=== PATIENT | male | born 1975 | race American Indian/Alaskan Native ===

== ENCOUNTER 2021-11-28 21:52 | Emergency (ER) | payer MEDICAID ==
--- NOTE | 2021-11-28 22:35 | Emergency Department Report ---
ED Palpitations HPI - General Chief Complaint: Chest Pain Stated Complaint: CHEST PAIN/SOB Time Seen by Provider: 11/28/21 22:27 Source: patient Mode of arrival: Ambulatory Limitations: No Limitations - History of Present Illness Initial Comments: Patient is a 46-year-old male with history of CHF, CAD, atrial fibrillation and defibrillator presenting to ED with complaint of palpitations that began this afternoon. States the symptoms began while he was trying to rest. States he then got up and went to the store. Once he returned home and began walking up the steps he began to feel symptoms again and shortly after his defibrillator fired. He also reports increasing dyspnea at rest worsened with exertion. MD Complaint: rapid heart beat, palpitations -: This afternoon Context: occured during rest Arrythmia History: atrial fibrillation, other (Defibrillator) Associated Symptoms: shortness of breath - Related Data Home Medications Medication Instructions Recorded Confirmed Last Taken Losartan [Cozaar] 100 mg PO QDAY 06/25/21 11/22/21 Unknown Simvastatin 20 mg PO DAILY 06/25/21 11/22/21 Unknown Albuterol Mdi (or & Nicu Only) 2 puff IH QID PRN 11/22/21 11/22/21 Unknown [ProAir HFA Inhaler] Budesonide/Formoterol Fumarate 2 puff PO BID 11/22/21 11/22/21 Unknown [Symbicort 160-4.5 Mcg Inhaler] Multivitamin 1 each PO QDAY 11/22/21 11/22/21 Unknown Pantoprazole [Protonix TAB] 40 mg PO QDAY 11/22/21 11/22/21 Unknown Previous Rx's Medication Instructions Recorded Last Taken Type Furosemide [Lasix TAB] 40 mg PO 0600,1800 #60 tablet 11/24/21 Unknown Rx carvediloL [Coreg] 3.125 mg PO BID #60 tablet 11/24/21 Unknown Rx Allergies Allergy/AdvReac Type Severity Reaction Status Date / Time No Known Allergies Allergy Verified 11/22/21 10:43 ED Review of Systems ROS: Stated complaint: CHEST PAIN/SOB Other details as noted in HPI Constitutional: no symptoms reported Eyes: denies: eye pain, eye discharge ENT: denies: ear pain, throat pain Respiratory: SOB with exertion, SOB at rest Cardiovascular: palpitations, dyspnea on exertion, edema Gastrointestinal: denies: abdominal pain, nausea, vomiting Musculoskeletal: denies: back pain, joint swelling, arthralgia Skin: denies: rash, lesions Neurological: denies: headache, weakness Psychiatric: denies: anxiety, depression Hematological/Lymphatic: denies: easy bleeding, easy bruising ED Past Medical Hx - Past Medical History Hx Hypertension: Yes Hx Congestive Heart Failure: Yes Hx Renal Disease: Yes (stage 3 kidney disease) - Surgical History Hx Internal Defibrillator: Yes - Social History Smoking Status: Current Every Day Smoker - Medications Home Medications: Home Medications Medication Instructions Recorded Confirmed Last Taken Type Losartan [Cozaar] 100 mg PO QDAY 06/25/21 11/22/21 Unknown History Simvastatin 20 mg PO DAILY 06/25/21 11/22/21 Unknown History Albuterol Mdi (or & Nicu Only) 2 puff IH QID PRN 11/22/21 11/22/21 Unknown History [ProAir HFA Inhaler] Budesonide/Formoterol Fumarate 2 puff PO BID 11/22/21 11/22/21 Unknown History [Symbicort 160-4.5 Mcg Inhaler] Multivitamin 1 each PO QDAY 11/22/21 11/22/21 Unknown History Pantoprazole [Protonix TAB] 40 mg PO QDAY 11/22/21 11/22/21 Unknown History Furosemide [Lasix TAB] 40 mg PO 0600,1800 #60 tablet 11/24/21 Unknown Rx carvediloL [Coreg] 3.125 mg PO BID #60 tablet 11/24/21 Unknown Rx ED Physical Exam - General Limitations: No Limitations General appearance: alert, in no apparent distress, obese - Head Head exam: Present: atraumatic, normocephalic - Eye Eye exam: Present: normal appearance, EOMI - Respiratory Respiratory exam: Present: normal lung sounds bilaterally. Absent: respiratory distress - Cardiovascular Cardiovascular Exam: Present: normal rhythm, tachycardia, normal heart sounds - GI/Abdominal GI/Abdominal exam: Present: soft. Absent: distended, tenderness - Rectal Rectal exam: Present: deferred - Extremities Exam Extremities exam: Present: normal inspection - Neurological Exam Neurological exam: Present: alert, oriented X3 - Psychiatric Psychiatric exam: Present: normal affect, normal mood - Skin Skin exam: Present: warm, dry, intact, normal color. Absent: rash ED Course Vital Signs 11/28/21 11/28/21 11/28/21 21:58 22:18 22:31 Temperature 98.4 F Pulse Rate 110 H 106 H Respiratory 24 25 H Rate Blood Pressure 143/95 137/93 137/95 O2 Sat by Pulse 95 97 Oximetry 11/28/21 11/28/21 11/28/21 22:45 23:01 23:15 Temperature Pulse Rate 103 H 108 H 100 H Respiratory 15 26 H 8 L Rate Blood Pressure 137/95 133/91 133/91 O2 Sat by Pulse 100 91 94 Oximetry 11/28/21 11/28/21 11/29/21 23:31 23:45 00:01 Temperature Pulse Rate 106 H 103 H 99 H Respiratory 19 29 H 23 Rate Blood Pressure 141/100 141/100 133/103 O2 Sat by Pulse 96 98 96 Oximetry 11/29/21 11/29/21 11/29/21 00:15 00:31 00:45 Temperature Pulse Rate 107 H 109 H 110 H Respiratory 20 20 34 H Rate Blood Pressure 133/103 137/99 137/99 O2 Sat by Pulse 92 90 92 Oximetry 11/29/21 11/29/21 11/29/21 01:01 01:15 01:31 Temperature Pulse Rate 109 H 107 H 93 H Respiratory 27 H 13 18 Rate Blood Pressure 141/105 141/105 134/100 O2 Sat by Pulse 94 98 86 Oximetry 11/29/21 11/29/21 11/29/21 01:45 02:01 02:15 Temperature Pulse Rate 106 H 106 H 100 H Respiratory 35 H 38 H 43 H Rate Blood Pressure 134/100 143/108 143/108 O2 Sat by Pulse 94 92 84 Oximetry 11/29/21 11/29/21 11/29/21 02:31 02:45 03:01 Temperature Pulse Rate 93 H 108 H 102 H Respiratory 25 H 22 17 Rate Blood Pressure 155/101 155/101 141/101 O2 Sat by Pulse 95 93 97 Oximetry ED Medical Decision Making - Lab Data Result diagrams: 11/28/21 23:46 11/28/21 23:46 - EKG Data -: EKG Interpreted by Me (EKG shows sinus tachycardia with ventricular rate of 106. Normal axis and.) EKG shows normal: sinus rhythm Rate: tachycardia - Medical Decision Making CBC and CMP gross unremarkable except for creatinine of 1.4. 2 sets of troponins are normal. On reassessment patient sleeping comfortably in bed. His vital signs are stable. He is not requiring supplemental oxygen. He is stable for discharge home with PCP and cardiology follow-up within 1 week. Critical care attestation.: If time is entered above; I have spent that time in minutes in the direct care of this critically ill patient, excluding procedure time. ED Disposition Clinical Impression: Sinus tachycardia, Defibrillator discharge Disposition: 01 HOME / SELF CARE / HOMELESS Is pt being admited?: No Does the pt Need Aspirin: No Condition: Stable Instructions: Sinus Tachycardia Additional Instructions: Please follow-up with your incubator operator within 1 week. You may return if your symptoms worsen. Referrals: PRIMARY CARE, [Primary Care Provider] - 3-5 Days Time of Disposition: 04:34 Print Language: LATVIAN
[2021-11-28] MEDS ORDERED: ASPIRIN 81 MG TAB CHEW PO ONE (23:35)
--- NOTE | 2021-11-28 23:57 | XRay Report ---
Chest single view INDICATION: Dyspnea IMPRESSION: Mild interstitial edema with borderline cardiomegaly. Signer Name: Alvin Hernandez MD Signed: 11/28/2021 11:52 PM Workstation Name: [id number]
[2021-11-29 00:12] LABS: Basophils % (Auto) 0.5 % (0.0-1.8); Eosinophils # (Auto) 0.1 K/mm3 (0.0-0.4); Eosinophils % (Auto) 0.8 % (0.0-4.3); Hematocrit 43.4 % (35.5-45.6); Hemoglobin 14.1 gm/dl (11.8-15.2); Lymphocytes # (Auto) 2.3 K/mm3 (1.2-5.4); Mean Corpuscular HGB Conc 33 % (32-34); Mean Corpuscular Volume 93 fl (84-94); Monocytes # (Auto) 0.6 K/mm3 (0.0-0.8); Monocytes % (Auto) 8.9 % (0.0-7.3); Platelet Count 217 K/mm3 (140-440); Red Blood Count 4.67 M/mm3 (3.65-5.03); Red Cell Distribution Width 15.2 % (13.2-15.2)
[2021-11-29 00:21] LABS: INR 0.92 (0.87-1.13); Partial Thromboplastin Time 29.6 Sec. (24.2-36.6)
[2021-11-29 00:38] LABS: Alanine Aminotransferase 17 units/L (7-56); BUN/Creatinine Ratio 11; Blood Urea Nitrogen 16 mg/dL (9-20); Calcium 9.1 mg/dL (8.4-10.2); Hemolysis Index 9
[2021-11-29] MEDS ORDERED: ASPIRIN 81 MG TAB CHEW PO ONE (03:00)
[2021-11-29] MEDS ORDERED: FUROSEMIDE 40 MG/4 ML INJ IV ONE (04:37)
[2021-11-29 06:58] VITALS: BP 133/91
--- NOTE | 2021-11-30 20:12 | Electrocardiograph Report ---
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
== END 2021-11-29 06:31 | disposition home or self-care (01) ==
LOC: ED 21:52
DX: T82.897A Other specified complication of cardiac prosthetic devices, implants and grafts, initial encounter (principal); R00.0 Tachycardia, unspecified; I11.0 Hypertensive heart disease with heart failure; I50.9 Heart failure, unspecified; N28.9 Disorder of kidney and ureter, unspecified; Z98.890 Other specified postprocedural states; F17.200 Nicotine dependence, unspecified, uncomplicated; Z79.899 Other long term (current) drug therapy; X58.XXXA Exposure to other specified factors, initial encounter; Y93.89 Activity, other specified; Y92.89 Other specified places as the place of occurrence of the external cause; Y99.8 Other external cause status
CPT/HCPCS: 36415; 71045; 80053; 83880; 84484; 85025; 85610; 85730; 93005; 96374; 99284; J1940

== ENCOUNTER 2021-12-02 16:43 | Inpatient (IN) | payer MEDICAID ==
[2021-12-02] MEDS ORDERED: ONDANSETRON 4 MG/2 ML INJ IV ONE (19:27)
[2021-12-02] MEDS ORDERED: fentaNYL 100 MCG/2 ML INJ IV ONE (19:27)
--- NOTE | 2021-12-02 19:36 | Emergency Department Report ---
HPI - General Chief Complaint: Chest Pain Time Seen by Provider: 12/02/21 19:15 - HPI HPI: Room 21 The patient is a 46-year-old male present with chief complaint of chest pain. Patient states since yesterday he has had constant chest tightness associated with shortness of breath and then an epigastric pressure whenever he exerts himself. Patient currently gets this chest tightness a score of 5/10. Patient states he has been compliant with his Lasix. Patient admits to diaphoresis with this chest pain but denies nausea/vomiting. The patient states his last stress test occurred 1 to 2 years ago was last cardiac catheterization occurred approxi mately 5 years ago. ED Past Medical Hx - Past Medical History Previous Medical History?: Yes Hx Hypertension: Yes Hx Congestive Heart Failure: Yes Hx Renal Disease: Yes (stage 3 kidney disease) Additional medical history: Obesity - Surgical History Past Surgical History?: Yes Hx Internal Defibrillator: Yes - Family History Family history: no significant - Social History Smoking Status: Current Every Day Smoker (1/4 pack/day) Substance Use Type: None (Denies illicit drug use), Alcohol (Occasional) - Medications Home Medications: Home Medications Medication Instructions Recorded Confirmed Last Taken Type Losartan [Cozaar] 100 mg PO QDAY 06/25/21 11/22/21 Unknown History Simvastatin 20 mg PO DAILY 06/25/21 11/22/21 Unknown History Albuterol Mdi (or & Nicu Only) 2 puff IH QID PRN 11/22/21 11/22/21 Unknown History [ProAir HFA Inhaler] Budesonide/Formoterol Fumarate 2 puff PO BID 11/22/21 11/22/21 Unknown History [Symbicort 160-4.5 Mcg Inhaler] Multivitamin 1 each PO QDAY 11/22/21 11/22/21 Unknown History Pantoprazole [Protonix TAB] 40 mg PO QDAY 11/22/21 11/22/21 Unknown History Furosemide [Lasix TAB] 40 mg PO 0600,1800 #60 tablet 11/24/21 Unknown Rx carvediloL [Coreg] 3.125 mg PO BID #60 tablet 11/24/21 Unknown Rx ED Review of Systems ROS: Stated complaint: CHEST PAIN/SHORTNESS OF BREAHT Other details as noted in HPI Constitutional: diaphoresis Eyes: denies: eye pain ENT: denies: throat pain Respiratory: shortness of breath Cardiovascular: chest pain Endocrine: no symptoms reported Gastrointestinal: abdominal pain. denies: nausea, vomiting Genitourinary: denies: dysuria Musculoskeletal: denies: back pain Neurological: denies: headache Physical Exam - Physical Exam Vital Signs: Vital Signs 12/02/21 19:25 Temperature 98.2 F Pulse Rate 82 Respiratory 18 Rate Blood Pressure 136/88 O2 Sat by Pulse 98 Oximetry Physical Exam: GENERAL: The patient is well-developed well-nourished male lying on stretcher not appearing to be in acute distress. [] HEENT: Normocephalic. Atraumatic. Extraocular motions are intact. Patient has moist mucous membranes. NECK: Supple. Trachea midline CHEST/LUNGS: Clear to auscultation. There is no respiratory distress noted. HEART/CARDIOVASCULAR: Regular. There is no tachycardia. There is no gallop rub or murmur. ABDOMEN: Abdomen is soft, with mild epigastric discomfort to palpation. No rebound or guarding. Patient has normal bowel sounds. There is no abdominal distention. SKIN: There is no rash. There is no edema. There is no diaphoresis. NEURO: The patient is awake, alert, and oriented. The patient is cooperative. The patient has no focal neurologic deficits. The patient has normal speech. GCS 15 MUSCULOSKELETAL: There is no evidence of acute injury. ED Course Vital Signs 12/02/21 19:25 Temperature 98.2 F Pulse Rate 82 Respiratory 18 Rate Blood Pressure 136/88 O2 Sat by Pulse 98 Oximetry ED Medical Decision Making - Lab Data Result diagrams: 12/02/21 20:02 12/02/21 20:02 Laboratory Tests 12/02/21 12/02/21 12/02/21 20:02 20:02 20:02 WBC 6.8 RBC 4.71 Hgb 14.4 Hct 43.7 MCV 93 MCH 31 MCHC 33 RDW 15.0 Plt Count 233 Lymph % (Auto) 31.3 [place] % (Auto) 9.3 H Eos % (Auto) 0.6 Baso % (Auto) 0.6 Lymph # (Auto) 2.1 [place] # (Auto) 0.6 Eos # (Auto) 0.0 Baso # (Auto) 0.0 Seg Neutrophils % 58.2 Seg Neutrophils # 3.9 PT 14.6 INR 1.03 Sodium 140 Potassium 4.9 Chloride 102.2 Carbon Dioxide 25 Anion Gap 18 BUN 23 H Creatinine 1.5 H Estimated GFR > 60 BUN/Creatinine Ratio 15 Glucose 94 Calcium 9.2 Total Bilirubin 1.10 AST 43 H ALT 38 Alkaline Phosphatase 65 Total Creatine Kinase 73 CK-MB (CK-2) 1.3 CK-MB (CK-2) Rel Index 1.7 Troponin T < 0.010 NT-Pro-B Natriuret Pep 1975 H Total Protein 7.5 Albumin 3.9 Albumin/Globulin Ratio 1.1 Lipase 19 - Radiology Data Radiology results: report reviewed (Chest x-ray), image reviewed (Chest x-ray) interpreted by me: Chest [id number], pulmonary edema. No pneumothorax [facility] [address] [place] [address] XRay Report Signed Patient: DEANDRA SUE MR#: [id number] : 1975 Acct:[id number] Age/Sex: 46 / M ADM Date: 12/02/21 Loc: ED Attending Dr: Ordering Physician: CLINT CORTEZ MD Date of Service: 12/02/21 Procedure(s): XR chest 1V ap Accession Number(s): [id number] cc: CLINT CORTEZ MD Fluoro Time In Minutes: CHEST 1 VIEW 12/02/2021 7:23 PM INDICATION / CLINICAL INFORMATION: chest pain. COMPARISON: 11/28/21 FINDINGS: SUPPORT DEVICES: None. HEART / MEDIASTINUM: Heart is mildly enlarged but stable. Left-sided AICD is unchanged. LUNGS / PLEURA: Mild bilateral interstitial edema is unchanged. No acute airspace disease. No pneumothorax. ADDITIONAL FINDINGS: No significant additional findings. IMPRESSION: 1. Mild cardiomegaly and mild pulmonary edema, unchanged. Signer Name: Jose Manuel Evangelista MD Signed: 12/02/2021 8:35 PM Workstation Name: [id number] Transcribed By: DT Dictated By: Stuart Evangelista MD Electronically Authenticated By: Stuart Evangelista MD Signed Date/Time: 12/02/212034 DD/ 34 TD/TT: - Differential Diagnosis Anginal equivalent, ACS, pericarditis, CHF exacerbation, GERD, pancreatitis Critical care attestation.: If time is entered above; I have spent that time in minutes in the direct care of this critically ill patient, excluding procedure time. ED Disposition Clinical Impression: CHF exacerbation, Anginal equivalent Disposition: 09 ADMITTED INPATIENT Is pt being admited?: Yes Does the pt Need Aspirin: Yes Condition: Fair Instructions: Angina, [id number] Referrals: PRIMARY CARE, [Primary Care Provider] - 3-5 Days Time of Disposition: 21:24 (Care transferred to hospitalist (Dr Hatfield)) Heart Score - HEART Score History: Moderately suspicious EKG: Non-specific Age: 45-65 Risk factors: > 3 risk factors or hx of atherosclerotic disease Troponin: < normal limit HEART Score: 5 - EKG Read Time Time EKG Completed: 21:30 EKG Read Time: 21:35
[2021-12-02] MEDS ORDERED: NITROGLYCERIN 2% OINT 1 GM TP ONE (19:43)
[2021-12-02] MEDS ORDERED: ASPIRIN 325 MG TAB PO ONE (19:43)
[2021-12-02 20:22] LABS: Basophils % (Auto) 0.6 % (0.0-1.8); Eosinophils % (Auto) 0.6 % (0.0-4.3); Hematocrit 43.7 % (35.5-45.6); Hemoglobin 14.4 gm/dl (11.8-15.2); Lymphocytes # (Auto) 2.1 K/mm3 (1.2-5.4); Lymphocytes % (Auto) 31.3 % (13.4-35.0); Mean Corpuscular HGB Conc 33 % (32-34); Mean Corpuscular Volume 93 fl (84-94); Monocytes # (Auto) 0.6 K/mm3 (0.0-0.8); Monocytes % (Auto) 9.3 % (0.0-7.3); Platelet Count 233 K/mm3 (140-440); Red Blood Count 4.71 M/mm3 (3.65-5.03)
[2021-12-02 20:35] LABS: INR 1.03 (0.87-1.13)
--- NOTE | 2021-12-02 20:40 | XRay Report ---
CHEST 1 VIEW 12/02/2021 7:23 PM INDICATION / CLINICAL INFORMATION: chest pain. COMPARISON: 11/28/21 FINDINGS: SUPPORT DEVICES: None. HEART / MEDIASTINUM: Heart is mildly enlarged but stable. Left-sided AICD is unchanged. LUNGS / PLEURA: Mild bilateral interstitial edema is unchanged. No acute airspace disease. No pneumot horax. ADDITIONAL FINDINGS: No significant additional findings. IMPRESSION: 1. Mild cardiomegaly and mild pulmonary edema, unchanged. Signer Name: Jose Manuel Evangelista MD Signed: 12/02/2021 8:35 PM Workstation Name: [id number]
[2021-12-02 20:46] LABS: Creatine Kinase MB 1.3 ng/mL (0.0-4.0)
[2021-12-02 20:48] LABS: Alanine Aminotransferase 38 units/L (7-56); Albumin 3.9 g/dL (3.9-5); BUN/Creatinine Ratio 15; Blood Urea Nitrogen 23 mg/dL (9-20); Calcium 9.2 mg/dL (8.4-10.2); Hemolysis Index 20
[2021-12-02] MEDS ORDERED: ONDANSETRON 4 MG/2 ML INJ IV PRN (21:58)
[2021-12-02] MEDS ORDERED: MAGNESIUM HYDROXIDE (MOM) ORAL LIQD UDC PO PRN (21:58)
[2021-12-02] MEDS ORDERED: ACETAMINOPHEN 325 MG TAB PO PRN ×2 (21:58)
[2021-12-02] MEDS ORDERED: MORPHINE 2 MG/1 ML INJ IV PRN (21:58)
[2021-12-02] MEDS ORDERED: MORPHINE 4 MG/1 ML INJ IV PRN ×2 (21:58)
[2021-12-02] MEDS ORDERED: traMADol 50 MG TAB PO PRN (21:58)
--- NOTE | 2021-12-02 22:11 | History and Physical Report ---
History of Present Illness Date of examination: 12/02/21 Date of admission: 12/02/2021 Chief complaint: Chest Pain History of present illness: 46-year-old -British male with significant history of hypertension, CHF and tobacco abuse presented to the emergency room today complaining of chest pain. Chest pain felt like tightness and has been having some epigastric discomfort. Chest pain is worse on exertion. On a scale of 10 pain is about 5- 6 over 10 in severity. There is no known relieving factor. He denies any fever or chills, no nausea vomiting, no hematuria or dysuria. He denies any headache or dizziness but has had some mild diaphoresis. Patient had his last stress test about a year ago and cardiac cath about 5 years ago with Which he indicates were within normal limits. Echocardiogram done on November 21, 2021 reveals EF of 20 to 25%. Work-up in the emergency room today chest x-ray shows cardiomegaly with some pulmonary edema. Lab was significant for elevated BNP of 1975. Patient has been admitted with chest pain and possibly CHF exacerbation. Past History Past Medical History: heart failure, hypertension, renal failure Past Surgical History: Other (Internal defibrillator) Social history: smoking (Current Every Day Smoker (1/4 pack/day)), alcohol abuse (Occasional) Family history: no significant family history Medications and Allergies Allergies Allergy/AdvReac Type Severity Reaction Status Date / Time No Known Allergies Allergy Verified 11/22/21 10:43 Home Medications Medication Instructions Recorded Confirmed Last Taken Type Losartan [Cozaar] 100 mg PO QDAY 06/25/21 11/22/21 Unknown History Simvastatin 20 mg PO DAILY 06/25/21 11/22/21 Unknown History Albuterol Mdi (or & Nicu Only) 2 puff IH QID PRN 11/22/21 11/22/21 Unknown History [ProAir HFA Inhaler] Budesonide/Formoterol Fumarate 2 puff PO BID 11/22/21 11/22/21 Unknown History [Symbicort 160-4.5 Mcg Inhaler] Multivitamin 1 each PO QDAY 11/22/21 11/22/21 Unknown History Pantoprazole [Protonix TAB] 40 mg PO QDAY 11/22/21 11/22/21 Unknown History Furosemide [Lasix TAB] 40 mg PO 0600,1800 #60 tablet 11/24/21 Unknown Rx carvediloL [Coreg] 3.125 mg PO BID #60 tablet 11/24/21 Unknown Rx Active Meds: Active Medications Acetaminophen (Acetaminophen 325 Mg Tab) 650 mg PO Q4H PRN PRN Reason: Pain MILD(1-3)/Fever >100.5/KENDRICK Acetaminophen (Acetaminophen 325 Mg Tab) 650 mg PO Q6H PRN PRN Reason: Pain, Mild (1-3) Aspirin (Aspirin Ec 325 Mg Tab) 325 mg PO QDAY ONESIMO Furosemide (Furosemide 40 Mg/4 Ml Inj) 40 mg IV BID@0600,1800 [facility] Magnesium Hydroxide (Magnesium Hydroxide (Mom) Oral Liqd Udc) 30 ml PO Q4H PRN PRN Reason: Constipation Morphine Sulfate (Morphine 2 Mg/1 Ml Inj) 2 mg IV Q4H PRN PRN Reason: Pain, Moderate (4-6) Morphine Sulfate (Morphine 4 Mg/1 Ml Inj) 4 mg IV Q4H PRN PRN Reason: Pain , Severe (7-10) Morphine Sulfate (Morphine 4 Mg/1 Ml Inj) 2 mg IV Q5MIN PRN PRN Reason: Chest Pain unrelieved by NTG Nitroglycerin (Nitroglycerin 0.4 Mg Tab Subl) 0.4 mg SL Q5M PRN PRN Reason: Chest Pain Ondansetron HCl (Ondansetron 4 Mg/2 Ml Inj) 4 mg IV Q8H PRN PRN Reason: Nausea And Vomiting Sodium Chloride (Sodium Chloride 0.9% 10 Ml Flush Syringe) 10 ml IV BID ONESIMO Sodium Chloride (Sodium Chloride 0.9% 10 Ml Flush Syringe) 10 ml IV PRN PRN PRN Reason: LINE FLUSH Sodium Chloride (Sodium Chloride 0.9% 10 Ml Flush Syringe) 10 ml IV PRN PRN PRN Reason: LINE FLUSH Tramadol HCl (Tramadol 50 Mg Tab) 50 mg PO Q6H PRN PRN Reason: Pain, Moderate (4-6) Review of Systems Constitutional: no fever, no chills Ears, nose, mouth and throat: no nasal congestion, no sore throat Cardiovascular: chest pain, no palpitations Respiratory: shortness of breath, no cough Gastrointestinal: nausea, no abdominal pain, no vomiting, no diarrhea Genitourinary Male: no dysuria, no hematuria, no nocturia Musculoskeletal: no neck pain, no low back pain Integumentary: no rash, no pruritis Neurological: no headaches, no confusion Psychiatric: no anxiety, no depression Endocrine: no polyphagia, no polydipsia, no polyuria, no nocturia Exam - Constitutional Vitals: Temp Pulse Resp BP Pulse Ox 98.2 F 91 H 22 121/89 97 12/02/21 19:25 12/02/21 20:52 12/02/21 20:51 12/02/21 20:52 12/02/21 20:51 General appearance: Present: no acute distress, well-nourished - EENT Eyes: Present: PERRL, EOM intact. Absent: scleral icterus ENT: hearing intact, clear oral mucosa, dentition normal - Neck Neck: Present: supple, normal ROM - Respiratory Respiratory effort: normal Respiratory: bilateral: rales (Few basilar rales) - Cardiovascular Rhythm: regular Heart Sounds: Present: S1 & S2. Absent: gallop, systolic murmur, diastolic murmur, rub, click - Extremities Extremities: no ischemia, pulses intact, pulses symmetrical, No edema, normal temperature, normal color, Full ROM Peripheral Pulses: within normal limits - Abdominal General gastrointestinal: Present: soft, non-distended, normal bowel sounds - Integumentary Integumentary: Present: clear, warm, dry, normal turgor. Absent: rash - Musculoskeletal Musculoskeletal: strength equal bilaterally - Psychiatric Psychiatric: appropriate mood/affect, intact judgment & insight, memory intact, cooperative - Neurologic Neurologic: CNII-XII intact, no focal deficits, moves all extremities HEART Score - HEART Score EKG: Non-specific Age: 45-65 Risk factors: > 3 risk factors or hx of atherosclerotic disease Troponin: Troponin T < 0.010 ng/mL (0.00-0.029) 12/02/21 20:02 Troponin: < normal limit Results - Labs CBC & Chem 7: 12/02/21 20:02 12/02/21 20:02 Labs: Abnormal lab results 12/02/21 12/02/21 Range/Units 20:02 20:02 [place] % (Auto) 9.3 H (0.0-7.3) % BUN 23 H (9-20) mg/dL Creatinine 1.5 H (0.8-1.3) mg/dL AST 43 H (5-40) units/L NT-Pro-B Natriuret Pep 1975 H (0-450) pg/mL Assessment and Plan - Patient Problems (1) Anginal equivalent Current Visit: Yes Status: Acute Plan to address problem: Patient admitted and placed on telemetry. We will check serial cardiac enzymes. Patient placed on daily aspirin, sublingual nitroglycerin and IV morphine as needed for chest pain. Will await further evaluation by cardiology. (2) CHF exacerbation Current Visit: Yes Status: Acute Plan to address problem: Patient placed on diuretics. Will monitor inputs and output and also monitor daily weights Await further evaluation by cardiology. (3) ROMY (acute kidney injury) Current Visit: No Status: Acute Plan to address problem: Worsening renal function from baseline. We will consult nephrology for evaluation. (4) DVT prophylaxis Current Visit: No Status: Acute Plan to address problem: Subcutaneous heparin (5) Full code status Current Visit: Yes Status: Acute Plan to address problem: Patient is full code
[2021-12-03] MEDS: NITROGLYCERIN 0.4 MG TAB SUBL SL PRN ×2 (01:22→08:45)
[2021-12-03] MEDS ORDERED: FUROSEMIDE 40 MG/4 ML INJ IV SCH (06:00)
[2021-12-03 06:30] LABS: Basophils % (Auto) 0.5 % (0.0-1.8); Eosinophils # (Auto) 0.1 K/mm3 (0.0-0.4); Eosinophils % (Auto) 0.9 % (0.0-4.3); Hematocrit 42.9 % (35.5-45.6); Hemoglobin 13.7 gm/dl (11.8-15.2); Lymphocytes # (Auto) 2.2 K/mm3 (1.2-5.4); Lymphocytes % (Auto) 35.4 % (13.4-35.0); Mean Corpuscular HGB Conc 32 % (32-34); Mean Corpuscular Volume 94 fl (84-94); Monocytes # (Auto) 0.6 K/mm3 (0.0-0.8); Monocytes % (Auto) 10.4 % (0.0-7.3); Platelet Count 210 K/mm3 (140-440); Red Blood Count 4.57 M/mm3 (3.65-5.03); Red Cell Distribution Width 15.1 % (13.2-15.2)
[2021-12-03 06:40] LABS: BUN/Creatinine Ratio 15; Blood Urea Nitrogen 23 mg/dL (9-20); Calcium 8.5 mg/dL (8.4-10.2); Hemolysis Index 7
[2021-12-03] MEDS ORDERED: ALBUTEROL 8.5 GM MDI INHALATION IH PRN (07:59)
[2021-12-03] MEDS: ASPIRIN EC 325 MG TAB PO SCH (09:24)
[2021-12-03] MEDS: LOSARTAN 50 MG TAB PO SCH (09:25)
[2021-12-03] MEDS: PANTOPRAZOLE 40 MG TAB PO SCH (09:25)
--- NOTE | 2021-12-03 09:56 | Progress Note ---
Assessment and Plan Assessment and plan: #Acute on chronic heart failure with reduced ejection fraction -Echo 11/21: LVEF 20-25% -patient has been to the ED twice since then -NTproBNP 1972, CXR cardiomegaly and mild pulmonary edema -patient currently given lasix 40mg IV BID, reports torsemide working better, will start torsemide 10mg BID -daily weights, strict I/O's, daily weights -fluid restriction -will restart BB and ARB -Cardiology consulted, assistance appreciated #Atypical chest pain -troponin negative x3 -likely secondary to problem above #Acute hypoxic respiratory failure -currently on 4L NC, will wean as tolerated -patient does not require O2 at baseline -likely secondary to CHF exacerbation #Nonsustained Ventricular tachycardia -seen on telemetry, HR max 130s -formal EKG ordered -Cardiology consulted #ROMY (acute kidney injury) -SCr 1.2 -> 1.5 -creatinine bump after starting diuretics and losartan -likely iatrogenic -Nephrology consulted, assistance appreciated #Morbid obesity -BMI -Counseled patient on the importance of weight loss, incorporating exercise, and dietary changes (lean meats, fresh fruits and vegetables, and water intake). Patient expresses understanding. -Time: +15 min #Obstructive sleep apnea -CPAP at night with naps #History of cocaine use -Patient reports not using since last admission -UDS ordered #Nicotine dependence -Smoking cessation counseling, supportive care, behavior change counseling, +15 minutes. #Advanced care planning -Disease education conducted, care plan discussed, diagnoses discussed, prognosis discussed, and patient acknowledges understanding with care plan -Time: +30 min History Interval history: No acute events overnight. Patient reports having worsening worsening shortness of breath after discharge. Denies chest pain. Per nursing patient had 2 runs of V. tach. Hospitalist Physical - Physical exam Narrative exam: GENERAL: Well-developed well-nourished. In no acute distress. HEENT: NC @4LPM NECK: Supple. CHEST/LUNGS: Coarse breath sound bilaterally. HEART/CARDIOVASCULAR: RRR. No murmur, rubs or gallops appreciated. ABDOMEN: +BS. NT/ND. SKIN: No rashes noted. NEURO: No focal motor deficit. Follows all commands. EXTREMITIES: No cyanosis, clubbing or edema. PSYCH: Cooperative. - Constitutional Vitals: Temp Pulse Resp BP Pulse Ox 98.1 F 138 H 18 108/90 93 04/17/22 07:15 12/03/21 09:25 12/03/21 07:15 12/03/21 09:25 12/03/21 07:15 General appearance: Present: no acute distress, well-nourished HEART Score - HEART Score EKG: Non-specific Age: 45-65 Risk factors: > 3 risk factors or hx of atherosclerotic disease Troponin: Troponin T < 0.010 ng/mL (0.00-0.029) 12/03/21 05:38 Troponin: < normal limit Results - Labs CBC & Chem 7: 12/03/21 05:38 12/03/21 05:38 Labs: Laboratory Last Values WBC 6.2 K/mm3 (4.5-11.0) 12/03/21 05:38 RBC 4.57 M/mm3 (3.65-5.03) 12/03/21 05:38 Hgb 13.7 gm/dl (11.8-15.2) 12/03/21 05:38 Hct 42.9 % (35.5-45.6) 12/03/21 05:38 MCV 94 fl (84-94) 12/03/21 05:38 MCH 30 pg (28-32) 12/03/21 05:38 MCHC 32 % (32-34) 12/03/21 05:38 RDW 15.1 % (13.2-15.2) 12/03/21 05:38 Plt Count 210 K/mm3 (140-440) 12/03/21 05:38 Lymph % (Auto) 35.4 % (13.4-35.0) H 12/03/21 05:38 [place] % (Auto) 10.4 % (0.0-7.3) H 12/03/21 05:38 Eos % (Auto) 0.9 % (0.0-4.3) 12/03/21 05:38 Baso % (Auto) 0.5 % (0.0-1.8) 12/03/21 05:38 Lymph # (Auto) 2.2 K/mm3 (1.2-5.4) 12/03/21 05:38 [place] # (Auto) 0.6 K/mm3 (0.0-0.8) 12/03/21 05:38 Eos # (Auto) 0.1 K/mm3 (0.0-0.4) 12/03/21 05:38 Baso # (Auto) 0.0 K/mm3 (0.0-0.1) 12/03/21 05:38 Seg Neutrophils % 52.8 % (40.0-70.0) 12/03/21 05:38 Seg Neutrophils # 3.2 K/mm3 (1.8-7.7) 12/03/21 05:38 PT 14.6 Sec. (12.2-14.9) 12/02/21 20:02 INR 1.03 (0.87-1.13) 12/02/21 20:02 Sodium 141 mmol/L (137-145) 12/03/21 05:38 Potassium 4.3 mmol/L (3.6-5.0) 12/03/21 05:38 Chloride 103.1 mmol/L (98-107) 12/03/21 05:38 Carbon Dioxide 26 mmol/L (22-30) 12/03/21 05:38 Anion Gap 16 mmol/L 12/03/21 05:38 BUN 23 mg/dL (9-20) H 12/03/21 05:38 Creatinine 1.5 mg/dL (0.8-1.3) H 12/03/21 05:38 Estimated GFR > 60 ml/min 12/03/21 05:38 BUN/Creatinine Ratio 15 % 12/03/21 05:38 Glucose 96 mg/dL (75-100) 12/03/21 05:38 Calcium 8.5 mg/dL (8.4-10.2) 12/03/21 05:38 Total Bilirubin 1.10 mg/dL (0.1-1.2) 12/02/21 20:02 AST 43 units/L (5-40) H 12/02/21 20:02 ALT 38 units/L (7-56) 12/02/21 20:02 Alkaline Phosphatase 65 units/L (35-129) 12/02/21 20:02 Total Creatine Kinase 73 units/L (55-170) 12/02/21 20:02 CK-MB (CK-2) 1.3 ng/mL (0.0-4.0) 12/02/21 20:02 CK-MB (CK-2) Rel Index 1.7 (0-4) 12/02/21 20:02 Troponin T < 0.010 ng/mL (0.00-0.029) 12/03/21 05:38 NT-Pro-B Natriuret Pep 1973 pg/mL (0-450) H 12/02/21 20:02 Total Protein 7.5 g/dL (6.3-8.2) 12/02/21 20:02 Albumin 3.9 g/dL (3.9-5) 12/02/21 20:02 Albumin/Globulin Ratio 1.1 % 12/02/21 20:02 Lipase 19 units/L (13-60) 12/02/21 20:02 Sher/IV: Voiding Method Urinal Active Medications - Current Medications Current Medications: Generic Name Dose Route Start Last Admin Trade Name Freq PRN Reason Stop Dose Admin Acetaminophen 650 mg 12/02/21 21:58 Acetaminophen 325 Mg Tab PO Q4H PRN Pain MILD(1-3)/Fever >100.5/KENDRICK Albuterol 2 puff 12/03/21 07:59 Albuterol 8.5 Gm Mdi Inhalation IH QID PRN Shortness Of Breath Arformoterol Tartrate 15 mcg 12/03/21 09:00 Arformoterol 15 Mcg/2 Ml Nebu IH Q12HRT [facility] Aspirin 325 mg 12/03/21 10:00 12/03/21 09:24 Aspirin Ec 325 Mg Tab PO 325 mg QDAY ONESIMO Administration Budesonide 1 mg 12/03/21 09:00 Budesonide 0.5 Mg/2 Ml Nebu IH Q12HRT [facility] Carvedilol 3.125 mg 12/03/21 10:00 12/03/21 09:24 Carvedilol 3.125 Mg Tab PO 3.125 mg BID ONESIMO Administration Furosemide 40 mg 12/03/21 06:00 12/03/21 07:09 Furosemide 40 Mg/4 Ml Inj IV 40 mg BID@0600,1800 [facility] Administration Heparin Sodium (Porcine) 5,000 unit 12/03/21 14:00 Heparin 5,000 Unit/1 Ml Vial SUB-Q Q8HR [facility] Losartan Potassium 100 mg 12/03/21 10:00 12/03/21 09:25 Losartan 50 Mg Tab PO 100 mg QDAY [facility] Administration Magnesium Hydroxide 30 ml 12/02/21 21:58 Magnesium Hydroxide (Mom) Oral Liqd Udc PO Q4H PRN Constipation Morphine Sulfate 2 mg 12/02/21 21:58 Morphine 2 Mg/1 Ml Inj IV Q4H PRN Pain, Moderate (4-6) Morphine Sulfate 4 mg 12/02/21 21:58 12/03/21 01:25 Morphine 4 Mg/1 Ml Inj IV 4 mg Q4H PRN Administration Pain , Severe (7-10) Morphine Sulfate 2 mg 12/02/21 21:58 Morphine 4 Mg/1 Ml Inj IV Q5MIN PRN Chest Pain unrelieved by NTG Nitroglycerin 0.4 mg 12/02/21 21:58 12/03/21 08:45 Nitroglycerin 0.4 Mg Tab Subl SL 0.4 mg Q5M PRN Administration Chest Pain Ondansetron HCl 4 mg 12/02/21 21:58 Ondansetron 4 Mg/2 Ml Inj IV Q8H PRN Nausea And Vomiting Pantoprazole Sodium 40 mg 12/03/21 10:00 12/03/21 09:25 Pantoprazole 40 Mg Tab PO 40 mg QDAY ONESIMO Administration Sodium Chloride 10 ml 12/02/21 22:00 12/03/21 09:26 Sodium Chloride 0.9% 10 Ml Flush Syringe IV 10 ml BID ONESIMO Administration Sodium Chloride 10 ml 12/02/21 21:58 Sodium Chloride 0.9% 10 Ml Flush Syringe IV PRN PRN LINE FLUSH Sodium Chloride 10 ml 12/02/21 21:58 Sodium Chloride 0.9% 10 Ml Flush Syringe IV PRN PRN LINE FLUSH Tramadol HCl 50 mg 12/02/21 21:58 12/03/21 09:23 Tramadol 50 Mg Tab PO 50 mg Q6H PRN Administration Pain, Moderate (4-6)
[2021-12-03] MEDS ORDERED: NON-FORMULARY EACH (Budesonide/Formoterol Fumarate [Symbicort 160-4.5 Mcg Inhaler] 10.2 GM PO SCH (10:00)
[2021-12-03] MEDS ORDERED: carvediloL 3.125 MG TAB PO SCH (10:00)
[2021-12-03] MEDS ORDERED: LOSARTAN 25 MG TAB PO SCH (10:00)
[2021-12-03 10:01] LABS: Amphetamine Screen,Urine Negative; Benzodiazepines Screen,Urine Negative; Cannabinoid Screen,Urine Negative; Cocaine Screen,Urine Negative; Methadone Screen,Urine Negative; Opiate Screen,Urine Negative
[2021-12-03] MEDS: BUDESONIDE 0.5 MG/2 ML NEBU IH SCH ×2 (10:02→20:18)
[2021-12-03] MEDS: ARFORMOTEROL 15 MCG/2 ML NEBU IH SCH ×2 (10:02→20:20)
--- NOTE | 2021-12-03 11:10 | Consultation ---
History of Present Illness Consult date: 12/03/21 Consult reason: congestive heart failure History of present illness: 46-year-old -Mexican male with significant history of hypertension, non ischemic cardiomyopathy s/p [employer] ICD, HFrEF, paroxysmal atrial fibrillation/flutter, CKD, obesity and tobacco abuse presented to the emergency room complaining of epigastric discomfort and dyspnea. Pt was noted to have CHF exacerbation and has been admitted. He was recently hospitalized for same problem. He has prior h/o cocaine abuse but has recently stopped. He continues to smoke cigarettes and drinks alcohol occasionally. He underwent GAYLA/Cardioversion last year at [facility] and was prescribed amiodarone and eliquis but has not been taking. He reports he stopped taking eliquis due to rectal bleeding. Echocardiogram done on November 21, 2021 reveals EF of 20 to 25%, moderate-severe MR, moderate pulmonary hypertension. ECG reveals sinus tachycardia at 106 bpm, LAE, LVH Telemetry monitoring during hospitalization reveals SR with periods of paroxysmal atrial flutter as well as NSVT Past History Past Medical History: heart failure, hypertension, renal failure Past Surgical History: Other (Internal defibrillator) Social history: smoking (Current Every Day Smoker (1/4 pack/day)), alcohol abuse (Occasional) Family history: no significant family history Medications and Allergies Allergies Allergy/AdvReac Type Severity Reaction Status Date / Time No Known Allergies Allergy Verified 11/22/21 10:43 Home Medications Medication Instructions Recorded Confirmed Last Taken Type Losartan [Cozaar] 100 mg PO QDAY 06/25/21 11/22/21 Unknown History Simvastatin 20 mg PO DAILY 06/25/21 11/22/21 Unknown History Albuterol Mdi (or & Nicu Only) 2 puff IH QID PRN 11/22/21 11/22/21 Unknown History [ProAir HFA Inhaler] Budesonide/Formoterol Fumarate 2 puff PO BID 11/22/21 11/22/21 Unknown History [Symbicort 160-4.5 Mcg Inhaler] Multivitamin 1 each PO QDAY 11/22/21 11/22/21 Unknown History Pantoprazole [Protonix TAB] 40 mg PO QDAY 11/22/21 11/22/21 Unknown History Furosemide [Lasix TAB] 40 mg PO 0600,1800 #60 tablet 11/24/21 Unknown Rx carvediloL [Coreg] 3.125 mg PO BID #60 tablet 11/24/21 Unknown Rx Active Meds: Active Medications Acetaminophen (Acetaminophen 325 Mg Tab) 650 mg PO Q4H PRN PRN Reason: Pain MILD(1-3)/Fever >100.5/KENDRICK Albuterol (Albuterol 8.5 Gm Mdi Inhalation) 2 puff IH QID PRN PRN Reason: Shortness Of Breath Arformoterol Tartrate (Arformoterol 15 Mcg/2 Ml Nebu) 15 mcg IH Q12HRT [facility] Aspirin (Aspirin Ec 325 Mg Tab) 325 mg PO QDAY [facility] Last Admin: 12/03/21 09:24 Dose: 325 mg Budesonide (Budesonide 0.5 Mg/2 Ml Nebu) 1 mg IH Q12HRT [facility] Carvedilol (Carvedilol 3.125 Mg Tab) 3.125 mg PO BID [facility] Last Admin: 12/03/21 09:24 Dose: 3.125 mg Heparin Sodium (Porcine) (Heparin 5,000 Unit/1 Ml Vial) 5,000 unit SUB-Q Q8HR [facility] Losartan Potassium (Losartan 50 Mg Tab) 100 mg PO QDAY [facility] Last Admin: 12/03/21 09:25 Dose: 100 mg Magnesium Hydroxide (Magnesium Hydroxide (Mom) Oral Liqd Udc) 30 ml PO Q4H PRN PRN Reason: Constipation Morphine Sulfate (Morphine 2 Mg/1 Ml Inj) 2 mg IV Q4H PRN PRN Reason: Pain, Moderate (4-6) Morphine Sulfate (Morphine 4 Mg/1 Ml Inj) 4 mg IV Q4H PRN PRN Reason: Pain , Severe (7-10) Last Admin: 12/03/21 01:25 Dose: 4 mg Morphine Sulfate (Morphine 4 Mg/1 Ml Inj) 2 mg IV Q5MIN PRN PRN Reason: Chest Pain unrelieved by NTG Nitroglycerin (Nitroglycerin 0.4 Mg Tab Subl) 0.4 mg SL Q5M PRN PRN Reason: Chest Pain Last Admin: 12/03/21 08:45 Dose: 0.4 mg Ondansetron HCl (Ondansetron 4 Mg/2 Ml Inj) 4 mg IV Q8H PRN PRN Reason: Nausea And Vomiting Pantoprazole Sodium (Pantoprazole 40 Mg Tab) 40 mg PO QDAY [facility] Last Admin: 12/03/21 09:25 Dose: 40 mg Sodium Chloride (Sodium Chloride 0.9% 10 Ml Flush Syringe) 10 ml IV BID ONESIMO Last Admin: 12/03/21 09:26 Dose: 10 ml Sodium Chloride (Sodium Chloride 0.9% 10 Ml Flush Syringe) 10 ml IV PRN PRN PRN Reason: LINE FLUSH Sodium Chloride (Sodium Chloride 0.9% 10 Ml Flush Syringe) 10 ml IV PRN PRN PRN Reason: LINE FLUSH Torsemide (Torsemide 10 Mg Tab) 20 mg PO BID@0600,1800 ONESIMO Tramadol HCl (Tramadol 50 Mg Tab) 50 mg PO Q6H PRN PRN Reason: Pain, Moderate (4-6) Last Admin: 12/03/21 09:23 Dose: 50 mg Review of Systems All systems: negative (per hpi) Physical Examination Vital Signs Temp Pulse Resp BP Pulse Ox 98.2 F 82 18 136/88 98 12/02/21 19:25 12/02/21 19:25 12/02/21 19:25 12/02/21 19:25 12/02/21 19:25 General appearance: obese Cardiac: Positive: Regular Rhythm, Tachycardia Lungs: Positive: Decreased Breath Sounds Abdomen: Positive: Soft Extremities: Present: +2 Edema Results 12/03/21 05:38 12/03/21 05:38 Cardiac Enzymes 12/02/21 Range/Units 20:02 AST 43 H (5-40) units/L CK-MB (CK-2) 1.3 (0.0-4.0) ng/mL Coagulation 12/02/21 Range/Units 20:02 PT 14.6 (12.2-14.9) Sec. INR 1.03 (0.87-1.13) CBC 12/02/21 12/03/21 Range/Units 20:02 05:38 WBC 6.8 6.2 (4.5-11.0) K/mm3 RBC 4.71 4.57 (3.65-5.03) M/mm3 Hgb 14.4 13.7 (11.8-15.2) gm/dl Hct 43.7 42.9 (35.5-45.6) % Plt Count 233 210 (140-440) K/mm3 Lymph # (Auto) 2.1 2.2 (1.2-5.4) K/mm3 [place] # (Auto) 0.6 0.6 (0.0-0.8) K/mm3 Eos # (Auto) 0.0 0.1 (0.0-0.4) K/mm3 Baso # (Auto) 0.0 0.0 (0.0-0.1) K/mm3 Comprehensive Metabolic Panel 12/02/21 12/03/21 Range/Units 20:02 05:38 Sodium 140 141 (137-145) mmol/L Potassium 4.9 4.3 (3.6-5.0) mmol/L Chloride 102.2 103.1 (98-107) mmol/L Carbon Dioxide 25 26 (22-30) mmol/L BUN 23 H 23 H (9-20) mg/dL Creatinine 1.5 H 1.5 H (0.8-1.3) mg/dL Glucose 94 96 (75-100) mg/dL Calcium 9.2 8.5 (8.4-10.2) mg/dL AST 43 H (5-40) units/L ALT 38 (7-56) units/L Alkaline Phosphatase 65 (35-129) units/L Total Protein 7.5 (6.3-8.2) g/dL Albumin 3.9 (3.9-5) g/dL Assessment and Plan Acute on chronic systolic heart failure (HFrEF) Non ischemic cardiomyopathy s/p [employer] ICD Htn CKD Paroxysmal atrial fibrillation/flutter. Previously prescribed anticoagulation but stopped due to rectal bleeding Obesity Recommend: Continue GDMT for NICM including beta leona and ARB Continue diuresis Monitor electrolytes and maintain in normal range Add amiodarone Ideally patient should be on therapeutic anticoagualtion due to paroxysmal AF/AFL but he is currently declining. Patient needs consistent outpatient cardiology f/u
--- NOTE | 2021-12-03 11:48 | Consultation ---
History of Present Illness - Reason for Consult Consult date: 12/03/21 chronic renal failure - History of Present Illness Mr. Romero is a 46yo with chronic systolic heart failure s/p AICD, hypertension, polysubstance dependence, tobacco dependence, alcohol dependence recently discharged from [facility] on Nov 24 following hospitalization for acute hypoxic respiratory failure secondary to acute on chronic systolic heart failure secondary due to medical nonadherence. He represents to the ED with chest pain - characterized as tightness associated with shortness of breath/BISHOP, diaphoresis, epigastric discomfort/bloating Nephrology consulted for SCr 1.5mg/dL. SCr 1.4mg/dL at discharge on Nov 24, 2021. Past History Past Medical History: heart failure, hypertension, renal failure Past Surgical History: Other (Internal defibrillator) Social history: smoking (Current Every Day Smoker (1/4 pack/day)), alcohol abuse (Occasional) Family history: no significant family history Medications and Allergies Allergies Allergy/AdvReac Type Severity Reaction Status Date / Time No Known Allergies Allergy Verified 11/22/21 10:43 Home Medications Medication Instructions Recorded Confirmed Last Taken Type Losartan [Cozaar] 100 mg PO QDAY 06/25/21 11/22/21 Unknown History Simvastatin 20 mg PO DAILY 06/25/21 11/22/21 Unknown History Albuterol Mdi (or & Nicu Only) 2 puff IH QID PRN 11/22/21 11/22/21 Unknown History [ProAir HFA Inhaler] Budesonide/Formoterol Fumarate 2 puff PO BID 11/22/21 11/22/21 Unknown History [Symbicort 160-4.5 Mcg Inhaler] Multivitamin 1 each PO QDAY 11/22/21 11/22/21 Unknown History Pantoprazole [Protonix TAB] 40 mg PO QDAY 11/22/21 11/22/21 Unknown History Furosemide [Lasix TAB] 40 mg PO 0600,1800 #60 tablet 11/24/21 Unknown Rx carvediloL [Coreg] 3.125 mg PO BID #60 tablet 11/24/21 Unknown Rx Active Meds: Active Medications Acetaminophen (Acetaminophen 325 Mg Tab) 650 mg PO Q4H PRN PRN Reason: Pain MILD(1-3)/Fever >100.5/KENDRICK Albuterol (Albuterol 8.5 Gm Mdi Inhalation) 2 puff IH QID PRN PRN Reason: Shortness Of Breath Arformoterol Tartrate (Arformoterol 15 Mcg/2 Ml Nebu) 15 mcg IH Q12HRT [facility] Aspirin (Aspirin Ec 325 Mg Tab) 325 mg PO QDAY [facility] Last Admin: 12/03/21 09:24 Dose: 325 mg Budesonide (Budesonide 0.5 Mg/2 Ml Nebu) 1 mg IH Q12HRT [facility] Carvedilol (Carvedilol 3.125 Mg Tab) 3.125 mg PO BID [facility] Last Admin: 12/03/21 09:24 Dose: 3.125 mg Heparin Sodium (Porcine) (Heparin 5,000 Unit/1 Ml Vial) 5,000 unit SUB-Q Q8HR [facility] Losartan Potassium (Losartan 50 Mg Tab) 100 mg PO QDAY [facility] Last Admin: 12/03/21 09:25 Dose: 100 mg Magnesium Hydroxide (Magnesium Hydroxide (Mom) Oral Liqd Udc) 30 ml PO Q4H PRN PRN Reason: Constipation Morphine Sulfate (Morphine 2 Mg/1 Ml Inj) 2 mg IV Q4H PRN PRN Reason: Pain, Moderate (4-6) Morphine Sulfate (Morphine 4 Mg/1 Ml Inj) 4 mg IV Q4H PRN PRN Reason: Pain , Severe (7-10) Last Admin: 12/03/21 01:25 Dose: 4 mg Morphine Sulfate (Morphine 4 Mg/1 Ml Inj) 2 mg IV Q5MIN PRN PRN Reason: Chest Pain unrelieved by NTG Nitroglycerin (Nitroglycerin 0.4 Mg Tab Subl) 0.4 mg SL Q5M PRN PRN Reason: Chest Pain Last Admin: 12/03/21 08:45 Dose: 0.4 mg Ondansetron HCl (Ondansetron 4 Mg/2 Ml Inj) 4 mg IV Q8H PRN PRN Reason: Nausea And Vomiting Pantoprazole Sodium (Pantoprazole 40 Mg Tab) 40 mg PO QDAY [facility] Last Admin: 12/03/21 09:25 Dose: 40 mg Sodium Chloride (Sodium Chloride 0.9% 10 Ml Flush Syringe) 10 ml IV BID [facility] Last Admin: 12/03/21 09:26 Dose: 10 ml Sodium Chloride (Sodium Chloride 0.9% 10 Ml Flush Syringe) 10 ml IV PRN PRN PRN Reason: LINE FLUSH Sodium Chloride (Sodium Chloride 0.9% 10 Ml Flush Syringe) 10 ml IV PRN PRN PRN Reason: LINE FLUSH Torsemide (Torsemide 10 Mg Tab) 20 mg PO BID@0600,1800 ONESIMO Tramadol HCl (Tramadol 50 Mg Tab) 50 mg PO Q6H PRN PRN Reason: Pain, Moderate (4-6) Last Admin: 12/03/21 09:23 Dose: 50 mg Review of Systems All systems: negative Exam - Vital Signs Vital signs: Vital Signs Temp Pulse Resp BP Pulse Ox 98.2 F 82 18 136/88 98 12/02/21 19:25 12/02/21 19:25 12/02/21 19:25 12/02/21 19:25 12/02/21 19:25 - General Appearance General appearance: well-developed, well-nourished EENT: ATNC Respiratory: Decreased Breath Sounds Heart: irregular Gastrointestinal: Present: normal Integumentary: no rash, warm and dry Neurologic: alert and oriented x3 Psychiatric: cooperative Results - Lab Results 12/03/21 05:38 12/03/21 05:38 Most recent lab results Calcium 8.5 mg/dL (8.4-10.2) 12/03/21 05:38 Assessment and Plan Impression: * Stage II chronic kidney disease --Baseline 1.2-1.4mg/dL * Chest pain * Atrial fibrillation * Cardiomyopathy s/p ICD implantation --TTE: EF 20-25% w/ severely dilated decreased LV systolic function with mild to moderate concentric LVH. LA is mildly dilated. RVSP is 52 mmHg * Hypertension * Type II diabetes mellitus Plan: * Renal function is near baseline - continue conservative management * Will obtain renal ultrasound * Will obtain UA and UPCR * Optimized cardiac function - cardiology following * Diuresis prn * Rate control per cardiology * Dose medications for renal function * Avoid potential nephrotoxins * AM labs ordered
[2021-12-03] MEDS ORDERED: METOPROLOL TARTRATE 5 MG/5 ML INJ IV PRN (11:54)
[2021-12-03] MEDS: HEPARIN 5,000 UNIT/1 ML VIAL SUB-Q SCH ×2 (13:28→22:12)
[2021-12-03] MEDS: AMIODARONE 200 MG TAB PO SCH ×2 (13:33→22:10)
[2021-12-03 15:14] LABS: Creatinine,Urine 216.4 mg/dL (0.1-20.0); Protein/Creatinine Ratio,Urine 0.06
[2021-12-03 15:16] LABS: Bilirubin,Urine NEG (Negative); Blood,Urine NEG (Negative); Color,Urine Yellow (Yellow); Mucus,Urine FEW /HPF; Protein,Urine <15 mg/dL mg/dL (Negative); Urobilinogen,Urine < 2.0 mg/dL (<2.0); WBC,Urine < 1.0 /HPF (0.0-6.0)
--- NOTE | 2021-12-03 16:21 | Ultrasound Report ---
ULTRASOUND RENAL INDICATION / CLINICAL INFORMATION: ROMY. COMPARISON: None available. FINDINGS: RIGHT KIDNEY: Length = 10.4 cm. - Echogenicity: Mildly echogenic. - Parenchymal Thickness: Normal. - Hydronephrosis: None. - Cyst / Mass: None. - Stones: None seen. LEFT KIDNEY: Length = 10 point cm. - Echogenicity: Mildly echogenic. - Parenchymal Thickness: Normal. - Hydronephrosis: None. - Cyst / Mass: None. - Stones: None seen. URINARY BLADDER: No significant abnormality. FREE FLUID: None. ADDITIONAL FINDINGS: None. IMPRESSION: 1. Mildly echogenic kidneys suggesting mild medical renal disease. No hydronephrosis. Signer Name: Jose Manuel Evangelista MD Signed: 12/03/2021 4:17 PM Workstation Name: [id number]
[2021-12-03] MEDS ORDERED: TORSEMIDE 10 MG TAB PO SCH (18:00)
[2021-12-03] MEDS: TORSEMIDE 10 MG TAB PO SCH (18:20)
[2021-12-03] MEDS: carvediloL 3.125 MG TAB PO SCH (22:10)
[2021-12-04] MEDS: HEPARIN 5,000 UNIT/1 ML VIAL SUB-Q SCH ×2 (06:22→13:27)
[2021-12-04] MEDS: TORSEMIDE 10 MG TAB PO SCH (06:22)
[2021-12-04 06:55] LABS: Calcium 8.3 mg/dL (8.4-10.2)
--- NOTE | 2021-12-04 07:22 | Progress Note ---
Assessment and Plan Assessment and plan: #Acute on chronic heart failure with reduced ejection fraction #Nonischemic cardiomyopathy s/p ICD -Echo 11/21: LVEF 20-25% -patient has been to the ED twice since then -NTproBNP 1972, CXR cardiomegaly and mild pulmonary edema -daily weights, strict I/O's, daily weights -fluid restriction -continue toresmide 20mg BID, BB and ARB -Cardiology consulted, assistance appreciated #Atypical chest pain -troponin negative x3 -likely secondary to problem above #Acute hypoxic respiratory failure -currently on 4L NC, will wean as tolerated -patient does not require O2 at baseline -likely secondary to CHF exacerbation #Atrial fibrillation -Rate controlled with amiodarone -Patient no longer taking Eliquis due to rectal bleeding and would prefer not to restart -Discussed increased risk of stroke patient acknowledges #Nonsustained Ventricular tachycardia -seen on telemetry, HR max 130s -formal EKG ordered -Cardiology consulted #ROMY (acute kidney injury) -SCr 1.6 today -creatinine bump after starting diuretics and losartan -Nephrology consulted, assistance appreciated #Morbid obesity -BMI 44.6% -Counseled patient on the importance of weight loss, incorporating exercise, and dietary changes (lean meats, fresh fruits and vegetables, and water intake). Patient expresses understanding. -Time: +15 min #Obstructive sleep apnea -CPAP at night with naps #History of cocaine use -Patient reports not using since last admission -UDS ordered #Nicotine dependence -Smoking cessation counseling, supportive care, behavior change counseling, +15 minutes. #Advanced care planning -Disease education conducted, care plan discussed, diagnoses discussed, prognosis discussed, and patient acknowledges understanding with care plan -Time: +30 min History Interval history: Patient receiving breathing treatment at time of interview. Patient reports improvement in shortness of breath. He has filled up to urinals full of urine since yesterday evening. No complaints at this time. Hospitalist Physical - Physical exam Narrative exam: GENERAL: Well-developed well-nourished. In no acute distress. HEENT: Simple facemask in place. NECK: Supple. CHEST/LUNGS: Coarse breath sound bilaterally. HEART/CARDIOVASCULAR: Irregular irregular rhythm. No murmur, rubs or gallops appreciated. ABDOMEN: +BS. NT/ND. SKIN: No rashes noted. NEURO: No focal motor deficit. Follows all commands. EXTREMITIES: No cyanosis, clubbing or edema. PSYCH: Cooperative. - Constitutional Vitals: Temp Pulse Resp BP Pulse Ox 98.2 F 82 20 118/88 95 12/04/21 03:45 12/04/21 03:45 12/04/21 03:45 12/04/21 03:45 12/04/21 03:45 General appearance: Present: obese HEART Score - HEART Score EKG: Non-specific Age: 45-65 Risk factors: > 3 risk factors or hx of atherosclerotic disease Troponin: Troponin T < 0.010 ng/mL (0.00-0.029) 12/03/21 05:38 Troponin: < normal limit Results - Labs CBC & Chem 7: 12/03/21 05:38 12/04/21 05:06 Labs: Laboratory Last Values WBC 6.2 K/mm3 (4.5-11.0) 12/03/21 05:38 RBC 4.57 M/mm3 (3.65-5.03) 12/03/21 05:38 Hgb 13.7 gm/dl (11.8-15.2) 12/03/21 05:38 Hct 42.9 % (35.5-45.6) 12/03/21 05:38 MCV 94 fl (84-94) 12/03/21 05:38 MCH 30 pg (28-32) 12/03/21 05:38 MCHC 32 % (32-34) 12/03/21 05:38 RDW 15.1 % (13.2-15.2) 12/03/21 05:38 Plt Count 210 K/mm3 (140-440) 12/03/21 05:38 Lymph % (Auto) 35.4 % (13.4-35.0) H 12/03/21 05:38 Rogers % (Auto) 10.4 % (0.0-7.3) H 12/03/21 05:38 Eos % (Auto) 0.9 % (0.0-4.3) 12/03/21 05:38 Baso % (Auto) 0.5 % (0.0-1.8) 12/03/21 05:38 Lymph # (Auto) 2.2 K/mm3 (1.2-5.4) 12/03/21 05:38 Rogers # (Auto) 0.6 K/mm3 (0.0-0.8) 12/03/21 05:38 Eos # (Auto) 0.1 K/mm3 (0.0-0.4) 12/03/21 05:38 Baso # (Auto) 0.0 K/mm3 (0.0-0.1) 12/03/21 05:38 Seg Neutrophils % 52.8 % (40.0-70.0) 12/03/21 05:38 Seg Neutrophils # 3.2 K/mm3 (1.8-7.7) 12/03/21 05:38 PT 14.6 Sec. (12.2-14.9) 12/02/21 20:02 INR 1.03 (0.87-1.13) 12/02/21 20:02 Sodium 141 mmol/L (137-145) 12/04/21 05:06 Potassium 4.1 mmol/L (3.6-5.0) 12/04/21 05:06 Chloride 102.7 mmol/L (98-107) 12/04/21 05:06 Carbon Dioxide 28 mmol/L (22-30) 12/04/21 05:06 Anion Gap 14 mmol/L 12/04/21 05:06 BUN 20 mg/dL (9-20) 12/04/21 05:06 Creatinine 1.6 mg/dL (0.8-1.3) H 12/04/21 05:06 Estimated GFR 56 ml/min 12/04/21 05:06 BUN/Creatinine Ratio 13 % 12/04/21 05:06 Glucose 107 mg/dL (75-100) H 12/04/21 05:06 Calcium 8.3 mg/dL (8.4-10.2) L 12/04/21 05:06 Total Bilirubin 1.10 mg/dL (0.1-1.2) 12/02/21 20:02 AST 43 units/L (5-40) H 12/02/21 20:02 ALT 38 units/L (7-56) 12/02/21 20:02 Alkaline Phosphatase 65 units/L (35-129) 12/02/21 20:02 Total Creatine Kinase 73 units/L (55-170) 12/02/21 20:02 CK-MB (CK-2) 1.3 ng/mL (0.0-4.0) 12/02/21 20:02 CK-MB (CK-2) Rel Index 1.7 (0-4) 12/02/21 20:02 Troponin T < 0.010 ng/mL (0.00-0.029) 12/03/21 05:38 NT-Pro-B Natriuret Pep 1973 pg/mL (0-450) H 12/02/21 20:02 Total Protein 7.5 g/dL (6.3-8.2) 12/02/21 20:02 Albumin 3.9 g/dL (3.9-5) 12/02/21 20:02 Albumin/Globulin Ratio 1.1 % 12/02/21 20:02 Lipase 19 units/L (13-60) 12/02/21 20:02 Urine Color Yellow (Yellow) 12/03/21 Unknown Urine Turbidity Clear (Clear) 12/03/21 Unknown Urine pH 6.0 (5.0-7.0) 12/03/21 Unknown Ur Specific [place] 1.017 (1.003-1.030) 12/03/21 Unknown Urine Protein <15 mg/dl mg/dL (Negative) 12/03/21 Unknown Urine Glucose (UA) Neg mg/dL (Negative) 12/03/21 Unknown Urine Ketones Neg mg/dL (Negative) 12/03/21 Unknown Urine Blood Neg (Negative) 12/03/21 Unknown Urine Nitrite Neg (Negative) 12/03/21 Unknown Urine Bilirubin Neg (Negative) 12/03/21 Unknown Urine Urobilinogen < 2.0 mg/dL (<2.0) 12/03/21 Unknown Ur Leukocyte Esterase Neg (Negative) 12/03/21 Unknown Urine WBC (Auto) < 1.0 /HPF (0.0-6.0) 12/03/21 Unknown Urine RBC (Auto) 2.0 /HPF (0.0-6.0) 12/03/21 Unknown Urine Mucus Few /HPF 12/03/21 Unknown Urine Creatinine 216.4 mg/dL (0.1-20.0) H 12/03/21 Unknown Protein/Creatinin Ratio 0.06 12/03/21 Unknown Urine Total Protein 13 mg/dL (5-11.8) H 12/03/21 Unknown Urine Opiates Screen Negative 12/03/21 09:41 Urine Methadone Screen Negative 12/03/21 09:41 Ur Barbiturates Screen Negative 12/03/21 09:41 Ur Phencyclidine Scrn Negative 12/03/21 09:41 Ur Amphetamines Screen Negative 12/03/21 09:41 U Benzodiazepines Scrn Negative 12/03/21 09:41 Urine Cocaine Screen Negative 12/03/21 09:41 U Marijuana (THC) Screen Negative 12/03/21 09:41 Drugs of Abuse Note Disclamer 12/03/21 09:41 Sher/IV: Voiding Method Urinal Active Medications - Current Medications Current Medications: Generic Name Dose Route Start Last Admin Trade Name Freq PRN Reason Stop Dose Admin Acetaminophen 650 mg 12/02/21 21:58 Acetaminophen 325 Mg Tab PO Q4H PRN Pain MILD(1-3)/Fever >100.5/KENDRICK Albuterol 2 puff 12/03/21 07:59 Albuterol 8.5 Gm Mdi Inhalation IH QID PRN Shortness Of Breath Amiodarone HCl 200 mg 12/03/21 13:00 12/03/21 22:10 Amiodarone 200 Mg Tab PO 200 mg BID ONESIMO Administration Arformoterol Tartrate 15 mcg 12/03/21 09:00 12/03/21 20:20 Arformoterol 15 Mcg/2 Ml Nebu IH 15 mcg Q12HRT ONESIMO Administration Aspirin 325 mg 12/03/21 10:00 12/03/21 09:24 Aspirin Ec 325 Mg Tab PO 325 mg QDAY ONESIMO Administration Budesonide 1 mg 12/03/21 09:00 12/03/21 20:18 Budesonide 0.5 Mg/2 Ml Nebu IH 1 mg Q12HRT ONESIMO Administration Carvedilol 6.25 mg 12/03/21 11:55 12/03/21 22:10 Carvedilol 3.125 Mg Tab PO 6.25 mg BID ONESIMO Administration Heparin Sodium (Porcine) 5,000 unit 12/03/21 14:00 12/04/21 06:22 Heparin 5,000 Unit/1 Ml Vial SUB-Q 5,000 unit Q8HR ONESIMO Administration Losartan Potassium 100 mg 12/03/21 10:00 12/03/21 09:25 Losartan 50 Mg Tab PO 100 mg QDAY ONESIMO Administration Magnesium Hydroxide 30 ml 12/02/21 21:58 Magnesium Hydroxide (Mom) Oral Liqd Udc PO Q4H PRN Constipation Metoprolol Tartrate 5 mg 12/03/21 11:54 Metoprolol Tartrate 5 Mg/5 Ml Inj IV Q6HR PRN Tachyarrhythmias Morphine Sulfate 2 mg 12/02/21 21:58 Morphine 2 Mg/1 Ml Inj IV Q4H PRN Pain, Moderate (4-6) Morphine Sulfate 4 mg 12/02/21 21:58 12/03/21 01:25 Morphine 4 Mg/1 Ml Inj IV 4 mg Q4H PRN Administration Pain , Severe (7-10) Morphine Sulfate 2 mg 12/02/21 21:58 Morphine 4 Mg/1 Ml Inj IV Q5MIN PRN Chest Pain unrelieved by NTG Nitroglycerin 0.4 mg 12/02/21 21:58 12/03/21 08:45 Nitroglycerin 0.4 Mg Tab Subl SL 0.4 mg Q5M PRN Administration Chest Pain Ondansetron HCl 4 mg 12/02/21 21:58 Ondansetron 4 Mg/2 Ml Inj IV Q8H PRN Nausea And Vomiting Pantoprazole Sodium 40 mg 12/03/21 10:00 12/03/21 09:25 Pantoprazole 40 Mg Tab PO 40 mg QDAY ONESIMO Administration Sodium Chloride 10 ml 12/02/21 22:00 12/03/21 22:09 Sodium Chloride 0.9% 10 Ml Flush Syringe IV 10 ml BID ONESIMO Administration Sodium Chloride 10 ml 12/02/21 21:58 Sodium Chloride 0.9% 10 Ml Flush Syringe IV PRN PRN LINE FLUSH Torsemide 20 mg 12/03/21 18:00 12/04/21 06:22 Torsemide 10 Mg Tab PO 20 mg BID@0600,1800 ONESIMO Administration Tramadol HCl 50 mg 12/02/21 21:58 12/03/21 09:23 Tramadol 50 Mg Tab PO 50 mg Q6H PRN Administration Pain, Moderate (4-6)
[2021-12-04] MEDS ORDERED: REGADENOSON 0.4 MG/5 ML INJ IV ONE (09:05)
[2021-12-04] MEDS: BUDESONIDE 0.5 MG/2 ML NEBU IH SCH ×2 (11:03→20:40)
[2021-12-04] MEDS: ARFORMOTEROL 15 MCG/2 ML NEBU IH SCH ×2 (11:04→20:41)
[2021-12-04] MEDS: AMIODARONE 200 MG TAB PO SCH ×2 (11:05→22:26)
[2021-12-04] MEDS: ASPIRIN EC 325 MG TAB PO SCH (11:05)
[2021-12-04] MEDS: LOSARTAN 50 MG TAB PO SCH (11:05)
[2021-12-04] MEDS: PANTOPRAZOLE 40 MG TAB PO SCH (11:05)
[2021-12-04] MEDS: carvediloL 3.125 MG TAB PO SCH ×2 (11:07→22:27)
--- NOTE | 2021-12-04 11:54 | Progress Note ---
Assessment and Plan - Patient Problems (1) Acute on chronic systolic heart failure Current Visit: Yes Status: Acute Plan to address problem: The patient is a 46-year-old man with a history of dilated nonischemic cardiomyopathy, chronic systolic left ventricular failure. He receives his usual cardiac care at [facility], and his manager post is located in [place]. He has a single chamber ICD in situ. He presented to the hospital at this time with progressive dyspnea and fatigue, and admits to me that he has had a recent predilection for high sodium fast foods. Chest x-ray in the emergency room showed evidence of mild interstitial edema. The patient has improved clinically following diuretic therapy. He was ordered by the medical service for a stress test. He has had extensive ischemic work-up over the past several years, with 2 cardiac catheterization procedures first at [facility] and then at [facility]. Both procedures reported normal coronaries and his cardiomyopathy diagnosed as idiopathic. We will continue optimal guideline directed medical therapy, patient advised to refrain from high salt diet, maintain medical compliance and outpatient follow- up with his manager post. No indication for stress testing for assessment of heart failure exacerbation and a nonischemic cardiomyopathy. Subjective Date of service: 12/04/21 Principal diagnosis: Acute on chronic systolic heart failure Interval history: The patient is a 46-year-old man with a history of dilated nonischemic ca rdiomyopathy, chronic systolic left ventricular failure. He receives his usual cardiac care at [facility], and his manager post is located in [place]. He has a single chamber ICD in situ. He presented to the hospital at this time with progressive dyspnea and fatigue, and admits to me that he has had a recent predilection for high sodium fast foods. Chest x-ray in the emergency room showed evidence of mild interstitial edema. The patient has improved clinically following diuretic therapy. He was ordered by the medical service for a stress test. He has had extensive ischemic work-up over the past several years, with 2 cardiac catheterization procedures first at [facility] and then at [facility]. Both procedures reported normal coronaries and his cardiomyopathy diagnosed as idiopathic. Objective Vital Signs Temp Pulse Pulse Pulse Pulse Resp Resp 12/04/21 11:12 98.3 F 12/04/21 11:07 78 12/04/21 11:05 78 12/04/21 10:14 82 12/04/21 10:00 87 18 12/04/21 08:39 80 22 12/04/21 03:45 98.2 F 82 20 12/03/21 23:00 89 12/03/21 22:10 99 H 12/03/21 22:00 83 17 12/03/21 20:20 80 18 12/03/21 19:55 97.9 F 90 20 12/03/21 15:36 97.4 F L 83 18 12/03/21 15:00 83 BP Pulse Ox 12/04/21 11:12 12/04/21 11:07 110/82 12/04/21 11:05 110/82 12/04/21 10:14 12/04/21 10:00 12/04/21 08:39 94 12/04/21 03:45 118/88 95 12/03/21 23:00 12/03/21 22:10 12/03/21 22:00 98 12/03/21 20:20 12/03/21 19:55 121/88 98 12/03/21 15:36 107/71 95 12/03/21 15:00 - Physical Examination General: No Apparent Distress HEENT: Positive: PERRL Neck: Positive: neck supple Cardiac: Positive: Reg Rate and Rhythm Lungs: Positive: Decreased Breath Sounds Neuro: Positive: Grossly Intact Abdomen: Positive: Soft Skin: Positive: Clear Extremities: Present: edema (Trace) - Labs and Meds Comprehensive Metabolic Panel 12/04/21 Range/Units 05:06 Sodium 141 (137-145) mmol/L Potassium 4.1 (3.6-5.0) mmol/L Chloride 102.7 (98-107) mmol/L Carbon Dioxide 28 (22-30) mmol/L BUN 20 (9-20) mg/dL Creatinine 1.6 H (0.8-1.3) mg/dL Glucose 107 H (75-100) mg/dL Calcium 8.3 L (8.4-10.2) mg/dL
[2021-12-04] MEDS ORDERED: FUROSEMIDE 40 MG/4 ML INJ IV SCH ×2 (12:30→18:00)
[2021-12-04] MEDS: SPIRONOLACTONE 25 MG TAB PO SCH (13:26)
--- NOTE | 2021-12-04 14:14 | Electrocardiograph Report ---
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
--- NOTE | 2021-12-04 14:16 | Electrocardiograph Report ---
[facility] Test Date: 2021-12-03 Test Time: 06:46:59 Pat Name: DEANDRA SUE Department: Room: A480 1 Gender: M Nurse Coordinator: CARLOZ : 1975 Requested By: CAITIE CRENSHAW Order Number: [id number] Reading MD: Davin Zimmerman Measurements Intervals [place] Rate: 82 P: 86 IN: 179 QRS: -25 QRSD: 104 T: 97 QT: 412 QTc: 483 Interpretive Statements Very poor data quality Sinus rhythm Probable left atrial enlargement LVH w/ repol abnormalities, possible ischemia Compared to ECG 11/28/2021 22:09:17 No significant change Electronically Signed On 12-04-2021 14:15:56 EDT by Davin Zimmerman
--- NOTE | 2021-12-04 14:17 | Electrocardiograph Report ---
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
--- NOTE | 2021-12-04 15:50 | Progress Note ---
Assessment and Plan Impression: * Stage II chronic kidney disease --Baseline 1.2-1.4mg/dL * Chest pain * Atrial fibrillation * Cardiomyopathy s/p ICD implantation --TTE: EF 20-25% w/ severely dilated decreased LV systolic function with mild to moderate concentric LVH. LA is mildly dilated. RVSP is 52 mmHg * Hypertension * Type II diabetes mellitus Plan: * Renal ultrasound shows mildly echogenic kidneys without any hydronephrosis. * His urine does not show any dipstick blood or protein. Urine protein creatinine ratio is 60 mg/g * Serum creatinine noted to be slightly higher today. Reduce Lasix to 40 mg twice a day * Optimized cardiac function - cardiology following * Diuresis prn * Rate control per cardiology * Dose medications for renal function * Avoid potential nephrotoxins Subjective Date of service: 12/04/21 Principal diagnosis: Acute on chronic systolic heart failure Interval history: Patient is comfortable. Shortness of breath is better. No nausea or vomiting. Objective - Vital Signs Vital signs: Vital Signs - 12hr 12/04/21 12/04/21 12/04/21 08:39 10:00 10:14 Temperature Pulse Rate 82 Pulse Rate [ 87 Bilateral Throughout] Pulse Rate [ 80 From Monitor] Respiratory 22 Rate Respiratory 18 Rate [Bilateral Throughout] Blood Pressure O2 Sat by Pulse 94 Oximetry 12/04/21 12/04/21 12/04/21 11:05 11:07 11:12 Temperature 98.3 F Pulse Rate 78 78 Pulse Rate [ Bilateral Throughout] Pulse Rate [ From Monitor] Respiratory Rate Respiratory Rate [Bilateral Throughout] Blood Pressure 110/82 110/82 O2 Sat by Pulse Oximetry 12/04/21 13:26 Temperature Pulse Rate 84 Pulse Rate [ Bilateral Throughout] Pulse Rate [ From Monitor] Respiratory Rate Respiratory Rate [Bilateral Throughout] Blood Pressure O2 Sat by Pulse Oximetry - General Appearance General appearance: well-developed, well-nourished, appears stated age, obese EENT: PERRL, mucous membranes moist Neck: no JVD, no thyromegaly, no carotid bruit, supple Respiratory: Present: Clear to Ascultation Cardiology: regular, normal heart rate, S1S2, no murmurs Gastrointestinal: normal, normoactive bowel sounds Integumentary: no rash, other (No edema) - Lab 12/03/21 05:38 12/04/21 05:06 Most recent lab results Calcium 8.3 mg/dL (8.4-10.2) L 12/04/21 05:06 Urine Creatinine 216.4 mg/dL (0.1-20.0) H 12/03/21 Unknown Urine Total Protein 13 mg/dL (5-11.8) H 12/03/21 Unknown Medications & Allergies - Medications Allergies/Adverse Reactions: Allergies No Known Allergies Allergy (Verified 11/22/21 10:43) Home Medications: Home Medications Medication Instructions Recorded Confirmed Last Taken Type Losartan [Cozaar] 100 mg PO QDAY 06/25/21 11/22/21 Unknown History Simvastatin 20 mg PO DAILY 06/25/21 11/22/21 Unknown History Albuterol Mdi (or & Nicu Only) 2 puff IH QID PRN 11/22/21 11/22/21 Unknown History [ProAir HFA Inhaler] Budesonide/Formoterol Fumarate 2 puff PO BID 11/22/21 11/22/21 Unknown History [Symbicort 160-4.5 Mcg Inhaler] Multivitamin 1 each PO QDAY 11/22/21 11/22/21 Unknown History Pantoprazole [Protonix TAB] 40 mg PO QDAY 11/22/21 11/22/21 Unknown History Furosemide [Lasix TAB] 40 mg PO 0600,1800 #60 tablet 11/24/21 Unknown Rx carvediloL [Coreg] 3.125 mg PO BID #60 tablet 11/24/21 Unknown Rx Active Medications: Generic Name Dose Route Start Last Admin Trade Name Freq PRN Reason Stop Dose Admin Acetaminophen 650 mg 12/02/21 21:58 Acetaminophen 325 Mg Tab PO Q4H PRN Pain MILD(1-3)/Fever >100.5/KENDRICK Albuterol 2 puff 12/03/21 07:59 Albuterol 8.5 Gm Mdi Inhalation IH QID PRN Shortness Of Breath Amiodarone HCl 200 mg 12/03/21 13:00 12/04/21 11:05 Amiodarone 200 Mg Tab PO 200 mg BID ONESIMO Administration Arformoterol Tartrate 15 mcg 12/03/21 09:00 12/04/21 11:04 Arformoterol 15 Mcg/2 Ml Nebu IH 15 mcg Q12HRT ONESIMO Administration Aspirin 325 mg 12/03/21 10:00 12/04/21 11:05 Aspirin Ec 325 Mg Tab PO 325 mg QDAY ONESIMO Administration Budesonide 1 mg 12/03/21 09:00 12/04/21 11:03 Budesonide 0.5 Mg/2 Ml Nebu IH 1 mg Q12HRT ONESIMO Administration Carvedilol 6.25 mg 12/03/21 11:55 12/04/21 11:07 Carvedilol 3.125 Mg Tab PO 6.25 mg BID ONESIMO Administration Furosemide 60 mg 12/04/21 12:30 12/04/21 13:27 Furosemide 40 Mg/4 Ml Inj IV 60 mg QDAY ONESIMO Administration Heparin Sodium (Porcine) 5,000 unit 12/03/21 14:00 12/04/21 13:27 Heparin 5,000 Unit/1 Ml Vial SUB-Q 5,000 unit Q8HR ONESIMO Administration Losartan Potassium 100 mg 12/03/21 10:00 12/04/21 11:05 Losartan 50 Mg Tab PO 100 mg QDAY ONESIMO Administration Magnesium Hydroxide 30 ml 12/02/21 21:58 Magnesium Hydroxide (Mom) Oral Liqd Udc PO Q4H PRN Constipation Metoprolol Tartrate 5 mg 12/03/21 11:54 Metoprolol Tartrate 5 Mg/5 Ml Inj IV Q6HR PRN Tachyarrhythmias Morphine Sulfate 2 mg 12/02/21 21:58 Morphine 2 Mg/1 Ml Inj IV Q4H PRN Pain, Moderate (4-6) Morphine Sulfate 4 mg 12/02/21 21:58 12/03/21 01:25 Morphine 4 Mg/1 Ml Inj IV 4 mg Q4H PRN Administration Pain , Severe (7-10) Morphine Sulfate 2 mg 12/02/21 21:58 Morphine 4 Mg/1 Ml Inj IV Q5MIN PRN Chest Pain unrelieved by NTG Nitroglycerin 0.4 mg 12/02/21 21:58 12/03/21 08:45 Nitroglycerin 0.4 Mg Tab Subl SL 0.4 mg Q5M PRN Administration Chest Pain Ondansetron HCl 4 mg 12/02/21 21:58 Ondansetron 4 Mg/2 Ml Inj IV Q8H PRN Nausea And Vomiting Pantoprazole Sodium 40 mg 12/03/21 10:00 12/04/21 11:05 Pantoprazole 40 Mg Tab PO 40 mg QDAY ONESIMO Administration Sodium Chloride 10 ml 12/02/21 22:00 12/04/21 11:08 Sodium Chloride 0.9% 10 Ml Flush Syringe IV 10 ml BID ONESIMO Administration Sodium Chloride 10 ml 12/02/21 21:58 Sodium Chloride 0.9% 10 Ml Flush Syringe IV PRN PRN LINE FLUSH Spironolactone 25 mg 12/04/21 12:30 12/04/21 13:26 Spironolactone 25 Mg Tab PO 25 mg QDAY ONESIMO Administration Tramadol HCl 50 mg 12/02/21 21:58 12/03/21 09:23 Tramadol 50 Mg Tab PO 50 mg Q6H PRN Administration Pain, Moderate (4-6)
[2021-12-05] MEDS: HEPARIN 5,000 UNIT/1 ML VIAL SUB-Q SCH ×3 (02:02→18:12)
[2021-12-05 06:46] LABS: BUN/Creatinine Ratio 14; Blood Urea Nitrogen 19 mg/dL (9-20); Calcium 9.1 mg/dL (8.4-10.2); Hemolysis Index 8
[2021-12-05] MEDS ORDERED: ASPIRIN EC 325 MG TAB PO SCH (08:38)
[2021-12-05] MEDS: LOSARTAN 50 MG TAB PO SCH (09:19)
[2021-12-05] MEDS: SPIRONOLACTONE 25 MG TAB PO SCH (09:20)
[2021-12-05] MEDS: AMIODARONE 200 MG TAB PO SCH (09:20)
[2021-12-05] MEDS: PANTOPRAZOLE 40 MG TAB PO SCH (09:20)
[2021-12-05] MEDS: ARFORMOTEROL 15 MCG/2 ML NEBU IH SCH (09:46)
[2021-12-05] MEDS: BUDESONIDE 0.5 MG/2 ML NEBU IH SCH (09:47)
[2021-12-05] MEDS ORDERED: FUROSEMIDE 40 MG/4 ML INJ IV SCH (10:00)
[2021-12-05] MEDS ORDERED: ASPIRIN EC 81 MG TAB PO SCH (10:00)
[2021-12-05] MEDS ORDERED: carvediloL 6.25 MG TAB PO SCH (10:00)
--- NOTE | 2021-12-05 11:36 | Progress Note ---
Assessment and Plan - Patient Problems (1) Acute on chronic systolic heart failure Current Visit: Yes Status: Acute Plan to address problem: The patient is a 46-year-old man with a history of dilated nonischemic cardiomyopathy, chronic systolic left ventricular failure. He receives his usual cardiac care at [facility], and his unit receptionist is located in [place]. He has a single chamber ICD in situ. He presented to the hospital at this time with progressive dyspnea and fatigue, and admits to me that he has had a recent predilection for high sodium fast foods. Chest x-ray in the emergency room showed evidence of mild interstitial edema. The patient has improved clinically following diuretic therapy. He was ordered by the medical service for a stress test. He has had extensive ischemic work-up over the past several years, with 2 cardiac catheterization procedures first at [facility] and then at [facility]. Both procedures reported normal coronaries and his cardiomyopathy diagnosed as idiopathic. We will continue optimal guideline directed medical therapy, patient advised to refrain from high salt diet, maintain medical compliance and outpatient follow- up with his unit receptionist. No indication for stress testing for assessment of heart failure exacerbation and a nonischemic cardiomyopathy. Subjective Date of service: 12/05/21 Principal diagnosis: Acute on chronic systolic heart failure Interval history: The patient is comfortable, no new cardiac complaints. No chest pain, shortness of breath and edema have resolved. On conveyor monitor he has a stable sinus rhythm at 95. Objective Vital Signs Temp Pulse Pulse Pulse Resp Resp BP 12/05/21 11:15 98.7 F 81 18 101/68 12/05/21 10:00 78 80 22 12/05/21 09:48 73 19 12/05/21 09:20 75 12/05/21 09:19 74 12/05/21 07:29 97.7 F 85 18 114/77 12/05/21 03:15 98.3 F 73 20 121/78 12/04/21 22:56 97.8 F 16 12/04/21 22:45 79 18 111/75 12/04/21 22:35 81 12/04/21 22:27 81 111/75 12/04/21 22:00 12/04/21 20:50 82 18 12/04/21 19:22 97.8 F 80 18 102/68 04/18/22 18:00 88 12/04/21 16:05 98.1 F 74 20 95/65 12/04/21 13:26 84 12/04/21 12:11 97.8 F 82 20 96/69 BP Pulse Ox 12/05/21 11:15 96 12/05/21 10:00 98 12/05/21 09:48 12/05/21 09:20 12/05/21 09:19 12/05/21 07:29 98 12/05/21 03:15 100 12/04/21 22:56 12/04/21 22:45 97 12/04/21 22:35 111/75 12/04/21 22:27 12/04/21 22:00 98 12/04/21 20:50 12/04/21 19:22 98 12/04/21 18:00 12/04/21 16:05 94 12/04/21 13:26 12/04/21 12:11 96 - Physical Examination General: No Apparent Distress HEENT: Positive: PERRL Neck: Positive: neck supple Cardiac: Positive: Reg Rate and Rhythm Lungs: Positive: Decreased Breath Sounds Neuro: Positive: Grossly Intact Abdomen: Positive: Soft Skin: Positive: Clear Extremities: Present: edema (Trace) - Labs and Meds Comprehensive Metabolic Panel 12/05/21 Range/Units 06:05 Sodium 141 (137-145) mmol/L Potassium 4.1 (3.6-5.0) mmol/L Chloride 103.4 (98-107) mmol/L Carbon Dioxide 25 (22-30) mmol/L BUN 19 (9-20) mg/dL Creatinine 1.4 H (0.8-1.3) mg/dL Glucose 102 H (75-100) mg/dL Calcium 9.1 (8.4-10.2) mg/dL
--- NOTE | 2021-12-05 12:44 | Discharge Summary ---
Providers - Providers Date of Admission: 12/02/21 21:58 Date of discharge: 12/05/21 Attending physician: GREY KWONG MD 12/02/21 Consult to Cardiac Rehabilitation [CONS] Routine Reason For Exam: Phase I 12/02/21 21:58 Consult to Cardiology [CONS] Routine Consulting Provider: EILEEN JAFFE Reason For Exam: CHEST PAIN Consult to Physician [CONS] Routine Comment: Consulting Provider: SELMA DOWELL Physician Instructions: Reason For Exam: ROMY Primary care physician: [employer]IST[facility] Hospitalization Reason for admission: Acute on chronic systolic heart failure, acute on chronic respiratory fail Condition: Fair Pertinent studies: Reviewed. Procedures: None. Hospital course: Patient is a 46-year-old male past medical history of nicotine dependence, cocaine use, obstructive sleep apnea, morbid obesity, nonischemic cardiomyopathy status post ICD (EF 20-25%), atrial fibrillation who presented with shortness of breath secondary to acute on chronic heart failure exacerbation. Patient underwent IV diuresis, and cardiology was consulted. Cardiology recommended continued medical management. The patient presented with acute hypoxic respiratory failure and has since been weaned down to room air. Patient's atrial fibrillation was better controlled with p.o. amiodarone. Patient also presented with an ROMY that is since began improving. Patient was counseled at length about the importance of medication compliance, salt restriction, and fluid restriction. Patient states that he had not been compliant with salt restriction. Patient will follow up with cardiology in the outpatient setting in addition to PCP follow-up. Patient is medically clear for discharge. Disposition: 01 HOME / SELF CARE / HOMELESS Final Discharge Diagnosis (Prints w/discharge instructions): Acute on chronic systolic heart failure, nonischemic cardiomyopathy status post ICD, atypical chest pain, acute hypoxic respiratory failure, atrial fibrillation, nonsustained ventricular tachycardia, ROMY, morbid obesity, struct of sleep apnea, history of cocaine use, nicotine dependence Time spent for discharge: 45 min Core Measure Documentation - Palliative Care Palliative Care/ Comfort Measures: Not Applicable - Core Measures Any of the following diagnoses?: heart failure, history only - Heart Failure Discharge Requirements JENSEN/ARB for LVSD if EF <40%: Not Applicable Reason for no JENSEN/ARB: Renal impairment Beta leona at discharge: Yes Exam - Constitutional Vitals: Temp Pulse Resp BP Pulse Ox 98.7 F 81 18 101/68 96 12/05/21 11:15 12/05/21 11:15 12/05/21 11:15 12/05/21 11:15 12/05/21 11:15 General appearance: Present: no acute distress, well-nourished, obese - EENT Eyes: Present: PERRL, EOM intact ENT: hearing intact, clear oral mucosa, dentition normal - Neck Neck: Present: supple, normal ROM - Respiratory Respiratory effort: normal Respiratory: bilateral: CTA - Cardiovascular Rhythm: irregularly irregular Heart Sounds: Present: S1 & S2 - Extremities Extremities: no ischemia, pulses intact, pulses symmetrical, No edema, normal temperature, normal color, Full ROM Peripheral Pulses: within normal limits - Abdominal General gastrointestinal: Present: soft, non-tender, non-distended, normal bowel sounds Male genitourinary: Present: deferred - Rectal Rectal Exam: deferred - Integumentary Integumentary: Present: clear, warm, dry - Musculoskeletal Musculoskeletal: strength equal bilaterally - Psychiatric Psychiatric: appropriate mood/affect, memory intact, cooperative - Neurologic Neurologic: CNII-XII intact, moves all extremities - Allied Health Allied health notes reviewed: nursing Plan Activity: advance as tolerated Diet: low salt Special Instructions: restrict fluid intake to (2 L/day) Additional Instructions: Patient is a 46-year-old male past medical history of nicotine dependence, cocaine use, obstructive sleep apnea, morbid obesity, nonischemic cardiomyopathy status post ICD (EF 20-25%), atrial fibrillation who presented with shortness of breath secondary to acute on chronic heart failure exacerbation. Patient underwent IV diuresis, and cardiology was consulted. Cardiology recommended continued medical management. The patient presented with acute hypoxic respiratory failure and has since been weaned down to room air. Patient's atrial fibrillation was better controlled with p.o. amiodarone. Patient also presented with an ROMY that is since began improving. Patient was counseled at length about the importance of medication compliance, salt restriction, and fluid restriction. Patient states that he had not been compliant with salt restriction. Patient will follow up with cardiology in the outpatient setting in addition to PCP follow-up. Patient is medically clear for discharge. Care Plan Goals: Patient is medically clear for discharge. Assessment: Patient is a 46-year-old male past medical history of nicotine dependence, cocaine use, obstructive sleep apnea, morbid obesity, nonischemic cardiomyopathy status post ICD (EF 20-25%), atrial fibrillation who presented with shortness of breath secondary to acute on chronic heart failure exacerbation. Patient underwent IV diuresis, and cardiology was consulted. Cardiology recommended continued medical management. The patient presented with acute hypoxic respiratory failure and has since been weaned down to room air. Patient's atrial fibrillation was better controlled with p.o. amiodarone. Patient also presented with an ROMY that is since began improving. Patient was counseled at length about the importance of medication compliance, salt restriction, and fluid restriction. Patient states that he had not been compliant with salt restriction. Patient will follow up with cardiology in the outpatient setting in addition to PCP follow-up. Patient is medically clear for discharge. Follow up with: PRIMARY CAREMD [Primary Care Provider] - 3-5 Days SANDI BURKS MD [Staff Physician] - 7 Days Prescriptions: Spironolactone [Aldactone] 25 mg PO QDAY #30 tablet Amiodarone [Cordarone 200 MG TAB] 200 mg PO BID #60 tablet
--- NOTE | 2021-12-05 14:08 | Progress Note ---
Assessment and Plan Impression: * Stage II chronic kidney disease --Baseline 1.2-1.4mg/dL * Chest pain * Atrial fibrillation * Cardiomyopathy s/p ICD implantation --TTE: EF 20-25% w/ severely dilated decreased LV systolic function with mild to moderate concentric LVH. LA is mildly dilated. RVSP is 52 mmHg * Hypertension * Type II diabetes mellitus Plan: * Renal ultrasound shows mildly echogenic kidneys without any hydronephrosis. * His urine does not show any dipstick blood or protein. Urine protein creatinine ratio is 60 mg/g * Serum creatinine noted to be slightly better today * Continue diuretic as needed * Optimized cardiac function - cardiology following * Diuresis prn * Rate control per cardiology * Dose medications for renal function * Avoid potential nephrotoxins * No objection to discharge from renal standpoint. Patient advised to follow-up in the office Subjective Date of service: 12/05/21 Principal diagnosis: Acute on chronic systolic heart failure Interval history: Patient feels better today. Shortness of breath is improving. Discharge plans noted Objective - Vital Signs Vital signs: Vital Signs - 12hr 12/05/21 12/05/21 12/05/21 03:15 07:29 09:19 Temperature 98.3 F 97.7 F Pulse Rate 73 85 74 Pulse Rate [ Bilateral Throughout] Pulse Rate [ From Monitor] Respiratory 20 18 Rate Respiratory Rate [Bilateral Throughout] Blood Pressure 121/78 114/77 O2 Sat by Pulse 100 98 Oximetry 12/05/21 12/05/21 12/05/21 09:20 09:48 10:00 Temperature Pulse Rate 75 78 Pulse Rate [ 73 Bilateral Throughout] Pulse Rate [ 80 From Monitor] Respiratory 22 Rate Respiratory 19 Rate [Bilateral Throughout] Blood Pressure O2 Sat by Pulse 98 Oximetry 12/05/21 11:15 Temperature 98.7 F Pulse Rate 81 Pulse Rate [ Bilateral Throughout] Pulse Rate [ From Monitor] Respiratory 18 Rate Respiratory Rate [Bilateral Throughout] Blood Pressure 101/68 O2 Sat by Pulse 96 Oximetry - General Appearance General appearance: well-developed, well-nourished, appears stated age, obese EENT: PERRL, mucous membranes moist Neck: no JVD, no thyromegaly, no carotid bruit, supple Respiratory: Present: Clear to Ascultation Cardiology: regular, normal heart rate, S1S2, no murmurs Gastrointestinal: normal, normoactive bowel sounds Integumentary: other (No edema) - Lab 12/03/21 05:38 12/05/21 06:05 Most recent lab results Calcium 9.1 mg/dL (8.4-10.2) 12/05/21 06:05 Urine Creatinine 216.4 mg/dL (0.1-20.0) H 12/03/21 Unknown Urine Total Protein 13 mg/dL (5-11.8) H 12/03/21 Unknown Medications & Allergies - Medications Allergies/Adverse Reactions: Allergies No Known Allergies Allergy (Verified 11/22/21 10:43) Home Medications: Home Medications Medication Instructions Recorded Confirmed Last Taken Type Losartan [Cozaar] 100 mg PO QDAY 06/25/21 11/22/21 Unknown History Simvastatin 20 mg PO DAILY 06/25/21 11/22/21 Unknown History Albuterol Mdi (or & Nicu Only) 2 puff IH QID PRN 11/22/21 11/22/21 Unknown History [ProAir HFA Inhaler] Budesonide/Formoterol Fumarate 2 puff PO BID 11/22/21 11/22/21 Unknown History [Symbicort 160-4.5 Mcg Inhaler] Multivitamin 1 each PO QDAY 11/22/21 11/22/21 Unknown History Pantoprazole [Protonix TAB] 40 mg PO QDAY 11/22/21 11/22/21 Unknown History Furosemide [Lasix TAB] 40 mg PO 0600,1800 #60 tablet 11/24/21 Unknown Rx carvediloL [Coreg] 3.125 mg PO BID #60 tablet 11/24/21 Unknown Rx Amiodarone [Cordarone 200 MG TAB] 200 mg PO BID #60 tablet 12/05/21 Unknown Rx Spironolactone [Aldactone] 25 mg PO QDAY #30 tablet 12/05/21 Unknown Rx Active Medications: Generic Name Dose Route Start Last Admin Trade Name Freq PRN Reason Stop Dose Admin Acetaminophen 650 mg 12/02/21 21:58 Acetaminophen 325 Mg Tab PO Q4H PRN Pain MILD(1-3)/Fever >100.5/KENDRICK Albuterol 2 puff 12/03/21 07:59 Albuterol 8.5 Gm Mdi Inhalation IH QID PRN Shortness Of Breath Amiodarone HCl 200 mg 12/03/21 13:00 12/05/21 09:20 Amiodarone 200 Mg Tab PO 200 mg BID ONESIMO Administration Arformoterol Tartrate 15 mcg 12/03/21 09:00 12/05/21 09:46 Arformoterol 15 Mcg/2 Ml Nebu IH 15 mcg Q12HRT ONESIMO Administration Aspirin 81 mg 12/05/21 10:00 12/05/21 09:20 Aspirin Ec 81 Mg Tab PO 81 mg QDAY ONESIMO Administration Budesonide 1 mg 12/03/21 09:00 12/05/21 09:47 Budesonide 0.5 Mg/2 Ml Nebu IH 1 mg Q12HRT ONESIMO Administration Carvedilol 6.25 mg 12/05/21 10:00 12/05/21 09:20 Carvedilol 6.25 Mg Tab PO 6.25 mg BID ONESIMO Administration Furosemide 40 mg 12/05/21 10:00 12/05/21 09:21 Furosemide 40 Mg/4 Ml Inj IV 40 mg QDAY [facility] Administration Heparin Sodium (Porcine) 5,000 unit 12/03/21 14:00 12/05/21 06:02 Heparin 5,000 Unit/1 Ml Vial SUB-Q Not Given Q8HR [facility] Losartan Potassium 100 mg 12/03/21 10:00 12/05/21 09:19 Losartan 50 Mg Tab PO 100 mg QDAY ONESIMO Administration Magnesium Hydroxide 30 ml 12/02/21 21:58 Magnesium Hydroxide (Mom) Oral Liqd Udc PO Q4H PRN Constipation Metoprolol Tartrate 5 mg 12/03/21 11:54 Metoprolol Tartrate 5 Mg/5 Ml Inj IV Q6HR PRN Tachyarrhythmias Morphine Sulfate 2 mg 12/02/21 21:58 Morphine 2 Mg/1 Ml Inj IV Q4H PRN Pain, Moderate (4-6) Morphine Sulfate 4 mg 12/02/21 21:58 12/03/21 01:25 Morphine 4 Mg/1 Ml Inj IV 4 mg Q4H PRN Administration Pain , Severe (7-10) Morphine Sulfate 2 mg 12/02/21 21:58 Morphine 4 Mg/1 Ml Inj IV Q5MIN PRN Chest Pain unrelieved by NTG Nitroglycerin 0.4 mg 12/02/21 21:58 12/03/21 08:45 Nitroglycerin 0.4 Mg Tab Subl SL 0.4 mg Q5M PRN Administration Chest Pain Ondansetron HCl 4 mg 12/02/21 21:58 Ondansetron 4 Mg/2 Ml Inj IV Q8H PRN Nausea And Vomiting Pantoprazole Sodium 40 mg 12/03/21 10:00 12/05/21 09:20 Pantoprazole 40 Mg Tab PO 40 mg QDAY ONESIMO Administration Sodium Chloride 10 ml 12/02/21 22:00 12/05/21 09:19 Sodium Chloride 0.9% 10 Ml Flush Syringe IV 10 ml BID ONESIMO Administration Sodium Chloride 10 ml 12/02/21 21:58 Sodium Chloride 0.9% 10 Ml Flush Syringe IV PRN PRN LINE FLUSH Spironolactone 25 mg 12/04/21 12:30 12/05/21 09:20 Spironolactone 25 Mg Tab PO 25 mg QDAY ONESIMO Administration Tramadol HCl 50 mg 12/02/21 21:58 12/03/21 09:23 Tramadol 50 Mg Tab PO 50 mg Q6H PRN Administration Pain, Moderate (4-6)
[2021-12-05 16:48] VITALS: BP 113/80
== END 2021-12-05 17:55 | disposition home or self-care (01) | DRG 291 ==
LOC: ED 16:43 → 4A 21:58
PROVIDERS: ADMIT Internal Medicine Geriatric Medicine; ATTEND Student in an Organized Health Care Education/Training Program
PROC: 5A09357 Assistance with Respiratory Ventilation, Less than 24 Consecutive Hours, Continuous Positive Airway Pressure (ICD-10-PCS; principal; 2021-12-03)
DX: I13.0 Hypertensive heart and chronic kidney disease with heart failure and stage 1 through stage 4 chronic kidney disease, or unspecified chronic kidney disease (principal); J96.01 Acute respiratory failure with hypoxia; I50.23 Acute on chronic systolic (congestive) heart failure; N17.9 Acute kidney failure, unspecified; F17.200 Nicotine dependence, unspecified, uncomplicated; E66.01 Morbid (severe) obesity due to excess calories; Z68.41 Body mass index [BMI] 40.0-44.9, adult; Z71.6 Tobacco abuse counseling; I47.2 Ventricular tachycardia; I42.8 Other cardiomyopathies; I48.0 Paroxysmal atrial fibrillation; I48.92 Unspecified atrial flutter; N18.2 Chronic kidney disease, stage 2 (mild); Z95.810 Presence of automatic (implantable) cardiac defibrillator; Z79.01 Long term (current) use of anticoagulants; Z79.899 Other long term (current) drug therapy
CPT/HCPCS: 36415; 71045; 76770; 80048; 80053; 80307; 81001; 82550; 82553; 82570; 83690; 83880; 84156; 84484; 85025; 85610; 93005; 94640; 94660; 99406; G0378; J1644; J1940; J2270; J2405; J3010